=== PATIENT | female | born 1950 | race Caucasian/White ===

== ENCOUNTER → 2018-07-13 13:07 | Outpatient (CLI) | payer MEDICARE, BC, SELFPAY ==
[2018-07-13 14:43] LABS: Hematocrit 41.8 % (36-46); Hemoglobin 14.1 g/dL (12.0-16.0); Mean Corpuscular HGB Conc 33.8 % (30-36); Mean Corpuscular Hemoglobin 32.2 PG (26-34); Mean Corpuscular Volume 95.3 fL (80-100); Platelet Count 360 X10^3/uL (150-400); Red Blood Cell Count 4.39 X10^6/uL (4.0-5.2); Red Cell Distribution Width 13.4 % (11.6-14.8); White Blood Cell Count 9.3 X10^3/uL (4.5-11.0)
[2018-07-13 15:19] LABS: BUN Creatinine Ratio 18.8 (6-22); Blood Urea Nitrogen 15 mg/dL (7-17); Carbon Dioxide 27 mmol/L (22-32); Chloride 98 mmol/L (98-107); Estimated Glomerular Filt Rate > 60.0 mL/min (>60); Glucose 97 mg/dL (80-110); HEMOLYSIS < 15 (0-50); Potassium 4.4 mmol/L (3.4-5.1); Sodium 137 mmol/L (137-145)
== END ==
PROVIDERS: Visit Provider Orthopaedic Surgery Orthopaedic Surgery of the Spine
DX: Z01.818 Encounter for other preprocedural examination (principal)
CPT/HCPCS: 36415; 80048; 85027; 93005

== ENCOUNTER 2018-07-22 06:14 | Inpatient (IN) | payer MEDICARE, BC, SELFPAY ==
[2018-07-18 09:53] VITALS: BMI 23.8
[2018-07-22] VITALS (17 sets, daily range): BP systolic 96–135; BP diastolic 57–80; PULSE 66–91; RESP 12–18; TEMP 35.8–36.7; O2SAT 92–99; BMI 23.8
--- NOTE | 2018-07-22 | DI.RAD.S_ITS ---
PROCEDURE: XR CERVICAL SPINE 2V OR 3V INDICATIONS: REMOVAL OF BROKEN SCREWS, IMPLANT AT C7-T1 TECHNIQUE: 3 intraoperative fluoroscopic view(s) of the cervical spine were acquired. COMPARISON: None. FINDINGS: Intraoperative fluoroscopic images of cervical spine shows fractured anterior fixation screws in the lower cervical spine. IMPRESSION: Fluoroscopy guidance was provided intraoperatively for broken surgical screw removal. Dictated by: Nicola Herrera M.D. on 07/22/2018 at 11:19 Approved by: Nicola Herrera M.D. on 07/22/2018 at 11:21
--- NOTE | 2018-07-22 07:05 | SUR.PREOP ---
pt reports no numbness or tingling in any extremities at this time.
[2018-07-22] MEDS: LACTATED RINGERS 1,000 ML 42 ML IV ×2 (07:26→10:03)
[2018-07-22] MEDS: SCOPOLAMINE 1 PATCH TOP (07:29)
[2018-07-22] MEDS: APREPITANT 40 MG CAPSULE PO (07:29)
[2018-07-22] MEDS: CEFAZOLIN 2 GM/100 ML FROZ.PIGGY IV (07:48)
--- NOTE | 2018-07-22 08:23 | SUR.OPER ---
Supine, head on gel donut. Arms padded with gel pads, tucked at sides, towel roll under shoulders. Safety belt at thigh. Pillow under knees.Legs uncrossed.
--- NOTE | 2018-07-22 10:19 | PM.PREOP ---
Pre-operative Note Interval Note History & Physical reviewed/Exam performed by Physician: Yes Changes to H&P: No
--- NOTE | 2018-07-22 10:32 | P.OP_ITS ---
Operative Date/Time/Diagnoses Date of procedure: 07/22/18 Time of procedure: 08:20 Pre-op diagnosis: 1. Hardware loosening cervical spine with previous fusion 2. Pseudoarthrosis C6-7 3. Spinal stenosis C7-T1 4. Spondylosis with radiculopathy C7-T1 Post-op diagnosis: same Procedure & Clinicians Procedure: 1. C7-T1 anterior cervical discectomy and fusion 2. C7-T1 anterior interbody cage placement 3. C6-7 revision anterior cervical fusion with allograft 4. C7-T1 anterior instrumentation with plate and screw placement 5. C6-7 anterior instrumentation removal 6. Debridement of scar tissue including muscle, fascia and bone 7. Utilization of microsurgical technique and operating microscope Same procedure as scheduled: Yes Indications: Patient has been having chronic neck pain and worsening cervical radiculopathy. Patient had prior anterior cervical fusion with instrumentation with worsening pain and radiculopathy. Imaging shows loosened hardware with pseudoarthrosis at C6-7 and advanced adjacent level disease with spinal stenosis at C7-T1. Patient failed multiple conservative management with worsening pain weakness and numbness in her upper extremity. Patient has been having difficulty performing activity of daily living. After discussing risks benefits of treatment options, patient elected proceed with surgery. Surgeon: Arcadio Keita Tier And Detonator: Charisse Landry Click Yes if Unassisted: Yes Anesthesia Type: General Operative Notes Closure Type: primary Specimen(s): none sent Prosthetic devices, grafts, tissues, transplants, or devices: Gl[employer] plate and cage with screws Estimated Blood Loss (mL): 20 Blood products transfused: none Procedure in detail: Patient was seen in the preoperative area. Risks and benefits of the surgery was discussed with the patient. Informed consent was obtained from the patient and placed in the chart. Surgical site was marked. Patient was taken to the operative room. General anesthesia was administered. Prophylactic antibiotic was given to the patient less than 30 min before the incision was made. Patient was placed into a supine position on a radiolucent table. Patient's shoulders were taped down to allow proper C-arm imaging. Anterior cervical area was prepped and draped in a sterile fashion. Time-out was performed at this time. Using lateral C-arm imaging, the level between C6 and T1 was identified and marked on patient's neck. A oblique incision from midline towards medial border of sternocleidomastoid muscle was made. The platysma muscle was incised in line with skin incision. Metzenbaum scissor was used to develop the plane between the medial border of sternocleidomastoid d and the strap muscles medially. The carotid sheath and its contents were identified and protected behind the hand- held retractor during the entire case. The plane between the carotid sheath and strap muscles was developed with Metzenbaum scissors. Dissection was made down to the level of the anterior cervical fascia. Longus colli muscle was incised on the anterior aspect of vertebral bodies bilaterally from C6-T1. Spinal needle was placed into the C7-T1 disc space and confirmed with lateral C-arm imaging. Loosened screws at C6-7 level was identified and removed using pituitary without any difficulty. Anterior scar tissue from previous surgery was debrided to expose the hardware. Fascial tissue, muscle and bone was removed using currett and pituitary in order to expose the disc space at C7-T1 due to the overlaying hardware partially covering the disc space. After the debridement was completed the C7-T1 disc space was visible. Using microsurgical technique and operative microscope, anterior cervical diskectomy was performed at C7-T1 level. This was done by removing the disc material, removing the anterior and posterior osteophytes posterior longitudinal ligaments along with performing bilateral foraminotomies at the C7-T1 levels. Patient was found to have severe foraminal stenosis. Patient's stenosis was fully decompressed after decompression was completed. After the diskectomy was completed, an anterior interbody cage was obtained. The cage was packed with globus via cell bone grafting material. One cage each along with the bone jessica ting material was then packed into the interbody space at C7-T1 along with an anterior cervical plate. The cervical plate was stabilized to the C7-T1 vertebrae using screws. After confirming placement of the hardware with AP and lateral C-arm imaging, the screws were locked into the plate using the locking mechanism and torque limiting screwdriver. The C6-7 disc space was inspected using the microscope. There is visible motion indicating pseudoarthrosis at C6-7 level. The disc space was decorticated using a power drill and curette to prepare for fusion surface. Demineralized bone matrix allograft was placed into the C6-7 level after the decortication was completed in order to accomplish anterior cervical fusion at C6-7 level. After the hardware was placed and confirmed with AP and lateral C-arm imaging, the wound was irrigated with sterile normal saline. The platysma muscle and the subcutaneous tissue was closed with 2-0 Vicryl. The skin was closed with 4-0 Monocryl and Steri-Strips. Patient tolerated the procedure well. Patient was transferred recovery room in stable condition. There were no complications. Complications: none Condition: stable Disposition: PACU Plan for aftercare: Admit to inpatient hospital
[2018-07-22] MEDS: fentaNYL 100 MCG/2 ML INJ 50 MCG IV (10:38)
[2018-07-22] MEDS: HYDROMORPHONE 2 MG INJ 0.5 MG IV ×2 (11:09→11:18)
[2018-07-22] MEDS: hydrOXYzine 50 MG/ML INJ 25 MG IM (11:29)
--- NOTE | 2018-07-22 12:00 | SUR.PHASEI ---
Pt transferred to room 216 via bed with all belongings. Pt's last vital signs stable with pain controlled; see vitals flowsheet documentation for details. Report given to AGUSTIN Rogers prior to transfer. AGUSTIN Rogers at bedside with pt upon arrival to room 216.
[2018-07-22] MEDS: SODIUM CHLORIDE 0.9% 1,000 ML 100 ML IV ×2 (13:05→23:19)
--- NOTE | 2018-07-22 14:44 | CM.DANOTE ---
Discharge Planning/Care Management DCP: assessment: case received, EMR reviewed. Pt has just now arrived to the floor from PACU and is getting settled in. Pt is a 67 year old female who admitted this morning for a planned Cervical spinal surgery. Payer: Medicare and [facility] out of [facility]. Admission status: INPT: confirmed by COURTNEY Mcdaniel Surgeon: Dr. Keita. Pt's preop assessment shows she plans for home at d/c with family support. Her daughter Starr: [phone] is listed as her advocate. Expect PT will be seeing her before d/c. P: check in tomorrow to continue the d/c planning assessment process. CM Discharge Assessment Start: 07/22/18 14:43 Freq: Status: Active Protocol: Document 07/22/18 14:43 ITV (Rec: 07/22/18 14:44 ITV [id number]) Discharge Planning Assessment Advance Directives? No Advance Directives on File No History Provided By Medical Record Prior Living Arrangements Apartment/Condo Household Members none Review Status In Process Next Review Type Continued Stay Review Pre-Anesthesia Assessment Start: 07/18/18 09:53 Freq: Status: Complete Protocol: Document 07/18/18 09:53 CAB (Rec: 07/18/18 10:58 CAB [id number]) Pre-Anesthesia Assessment Patient Information Reviewed Via Phone Assessment Assessment Completed With Patient Diagnostic Results BMP/CMP CBC EKG Comment Labs/EKG @ 07/13/18 Seen Specialist in Last 12 Months Yes Specialist Seen Sweater Operator Orthopedist Primary Language Surinamese Edi Consultant Required No Height 167.64 cm Weight 67.132 kg Body Mass Index (BMI) 23.8 Hearing Ability Normal Visual Assist Contacts Glasses Dentition Type Teeth, Natural Present Barriers to Learning None Other Aids No Hx Anesthesia Reactions Yes: Severe post-op vomiting Hx Family Anesthesia Reaction No Hx Malignant Hyperthermia No Hx Blood Transfusions No Anesthesia Review Requested No Lens Molder No alcohol intake current alcohol intake frequency a few times a week Smoking Status Never smoker Substance Use Type does not use Pain Present Pain Reported Musculoskeletal Symptoms Limited Range of Motion Neck Pain Numbness Radiating Pain into Limb Tingling History of Falling (Recent or History of No ) Patient is completely paralyzed or No completely immobile Mental Status Oriented to own ability Is patient on oxygen? No Does patient have PARKS/SOB No Hx Sleep Apnea No Currently Taking a Beta Camelia No Can You Climb a Flight of Stairs Without Yes SOB Hx Chest Pain No Hx SOB No Hx Syncope or Dizziness Yes: Imbalance of ear crystals 2018, now resolved Anti-Coagulant Therapy No Has a Sr Vice President No Cardiac Testing No Hx Pacemaker/ICD No Pacemaker Rep Required? No Cardiac Clearance Received Not Applicable Diet Type At Home Regular dysphagia Yes: Due to cervical hardware moving forward Urinary Catheter Present No Hx Urinary Self Catheterization No Diabetes No Patient No Lactating No Hx Drug Resistant Organism No Presence of External or Internal Medical Yes: Cervical hardware Devices Have you traveled outside the [facility] in the last 30 days? Marital Status Lives With none Prior Living Arrangements Apartment/Condo Support System Child/Children Friend(s) Patient Discharge Plan Description Return Home Comment Pt advised 1-2 night length of stay per surgeon's office Feels Safe in Current Environment Yes Been Physically Hurt or Threatened By a No Person in Current Environment Do you have thoughts of harming yourself None or others? Are you currently considering suicide? No Do you have a plan to hurt yourself or No Plan others? Do You Have Any Spiritual Beliefs That No May Affect Your HC Choices? Do You Have Any Cultural Practices That No May Affect Your HC Choices? Spiritual Referral None Comment Orthodox Who Can We Speak to About Patient's Care Family, friends Identifying Code for Release of Patient Declines to issue Information Health Care Proxy/Next of Kin Starr (daughter) Health Care Proxy Emergency Contact Name Starr (daughter) Emergency Contact Advance Directives? No: Information mailed to patient Requested Patient Bring Advanced Yes Directives DOS Power of Behavioral Health Case Manager No PAC Instructions Durable medical equipment Medications to take/avoid Nasal antibiotic No ETOH/petroleum product on skin DOS NPO Post-op transportation Pre-surgical wash Sensory aids Sturdy shoes/comfortable clothes Do not bring valuables and remove jewelry
--- NOTE | 2018-07-22 14:47 | PC.NURSE ---
Ortho: Received from pacu 67 yr female s/p neck surgery. Drowsy but arouses easily. Cont pulse ox for now and sats have been 95% or greater on ra. not hungry and didn't eat lunch but is taking ice chips and water w/out choking or problems. Discussed use of cool/cold fluids and foods maybe more soothing to throat. Ice pack is on. Skin is sensative and can see where patches were from tele. Neck drssing is c/d/i, covered with tegaderm and no redness seen from tape in this area. Has been up to void x2. Pt reports she is comfortable at this time and only has an ache in her neck. Understands pain med regime and will call when she needs something. Dtr at bedside and helpful. Plans to spend the night to be with patient. Patient denies any concerns at this time. Cont w/poc.
--- NOTE | 2018-07-22 16:11 | PC.NURSE ---
Ortho: Pt reports a sore tongue and upper lt hand side of lip is swollen. Pt's upper lip is swollen and tongue has extensive bruising to the sides and underneath tongue. Swelling and bruising not seen earlier. Pt also reports she feels like there is blood in her mouth. no resp distress and denies any problems breathing or with airway. Cont to have no problems chewing or swallowing. Discussed taking ice chips with pt. Dr. Keita called and notified of pt's bruising and swelling of her lip and tongue, feeling blood in her mouth, no resp compromise seen. He asked to have anesthesiologist come and see pt, prefer the one who did the case with him, otherwise have health and nutrition specialist anesthesiologist see pt. Called pacu to relay message, Reyna RN notified of situation, Dr. Moran performed case with Dr. Keita or it could be health and nutrition specialist anesth Dr. Oquendo. She will make anesthe aware and one of them will come and see patient.
[2018-07-22] MEDS: OXYCODONE IR 5 MG TABLET 10 MG PO ×2 (16:24→21:17)
[2018-07-22] MEDS: CEFAZOLIN 1 GM/50 ML FROZ.PIGGY IV (16:24)
--- NOTE | 2018-07-22 18:25 | PT.IIE ---
Current Diagnoses Other spondylosis with radiculopathy, cervical region (07/22/18) Spinal stenosis, cervical region (07/22/18) Other mechanical complication of other internal orthopedic devices, implants and grafts, initial encounter (07/22/18) Surgery Performed Operation Date: 07/22/18 07:45 Actual Procedures p C6-7, C7-T1 ACDF w/Anterior instru, C6-7 Anterior hardware removal - Arcadio Keita MD Surgical History (Last Updated 07/18/18 @ 10:20 by Christina Will RN) History of 2 sections (Acute) Hx of appendectomy (Acute) S/P cervical spinal fusion (Acute ~10/2011) Status post Mohs surgery for basal cell carcinoma (Acute) Medical History (Last Updated 07/18/18 @ 10:20 by Christina Will RN) Arthritis (Acute) Asthma (Acute) Easy bruisability (Acute) Fragile skin (Acute) H/O: hysterectomy (Acute) HLD (hyperlipidemia) (Acute) HTN (hypertension) (Acute) Nerve pain due to spinal stenosis (Acute) Numbness and tingling (Acute) Seasonal allergies (Acute) Physical Therapy Inpatient Evaluation/Re-Eval M1 PT/OT-IP Prior Functional Status Start: 07/22/18 18:08 Freq: NEEDED Status: Active Protocol: Document 07/22/18 17:15 (Rec: 07/22/18 18:25 [id number]) Medical Review Prior Functional Status Medical History Reviewed Yes Diet/Fluid Consistency Regular Communication No deficits notd. Able to make needs knwon Mobility and Gait Pt is independent for mobility at home and community without AD. She is able to drive. Activities of Daily Living and IADL's Pt states she used her L UE for most ADLs and IADLs due to severe R arm pain but she is very independent for ADLs and IADLs Social History Household Members none Living Arrangements Apartment/Condo Number of Floors (Floors) Two Floors Number of Stairs To Enter/Railing? 13 QUIN from garage with 1 landing, R rail up 13 steps to 2nd floor with 1 landing, L rail up Home Environment Standard Height Toilet Tub/Shower Home Equipment Hand Held Shower Grab Bars In Shower Employment Status Retired Additional Social History Comment Pt lives alone in [facility]. Pt had her 1st cervical sx around 10 years ago but she had new onset of R arm pain recently which significantly limits her R arm mobility. She has been using her L UE primarily due to R arm pain. Imaging found out displaced hardware from previous surgery . She also states her dtr Sarah from [place] is going to stay with her for 4/5 days to assist and has friends around who are able to assist as well M2 PT-IP Current Condition Start: 07/22/18 18:08 Freq: NEEDED Status: Active Protocol: Document 07/22/18 17:15 (Rec: 07/22/18 18:25 [id number]) Physical Therapy Current Condition Current Condition Evaluation Date 07/22/18 Treatment Diagnosis C6-T1 ACDF, C6-C7 hardware removal, impaired R UE mobility Onset Date 07/22/18 Precautions Cervical Spine Precautions Soft Collar for Comfort Rigid Collar No Heavy Lifting Log Roll Weight Bearing Status Weight Bearing Status Weight Bear as Tolerated M3 PT-IP Subjective Start: 07/22/18 18:08 Freq: NEEDED Status: Active Protocol: Document 07/22/18 17:15 (Rec: 07/22/18 18:25 [id number]) Subjective Physical Therapy Visit Type Type Initial Evaluation Visit Start Time 17:15 Visit Stop Time 17:45 Total Visit Minutes 30 Notes Pt's dtr Sarah at bedside. Per RN, Pt's upper lip is swollen and tongue has extensive bruising to the sides and underneath tongue. Swelling and bruising not seen earlier. Pt also reports she feels like there is blood in her mouth. no resp distress and denies any problems breathing or with airway. Cont to have no problems chewing or swallowing Number of MUSIC GRAPHER Visits 0 Physical Therapy Visit Comments Patient Comments Im feeling a little bit weak. Patient Goals To return home with dtr. Therapy Pain Assessment Pain When Pain Assessed During Mobility Pain Present Pain Present Pain Reported Location right arm Intensity 3 Scale Used Numeric (1 - 10) Description Acute Pain Management Techniques Modification of Treatment Timing of Activity with Medications M4 PT-IP Mobility and Gait Start: 07/22/18 18:08 Freq: NEEDED Status: Active Protocol: Document 07/22/18 17:15 (Rec: 07/22/18 18:25 [id number]) PT-Bed Mobility Assessment Rolling Type of Rolling Log Rolling Roll to Left Level of Assist Standby Assistance Supine to Sit Supine to Sit Standby Assistance Sit to Supine Sit to Supine Standby Assistance Head of Bed Elevated Bedrails Scooting Scooting to Edge of Bed Standby Assistance Scooting Up and Down in Bed Standby Assistance PT-Transfer Assessment Sit to and From Stand Sit to and from Stand Standby Assistance Equipment Transfer Assistive Device Gait Belt Front Wheeled Walker Orthotic/Prosthetic Devices or Brace: Yes Transfers Transfer Destination Bed Transfer Technique Stand Step Pivot Transfer Ability Level of Assist Standby Assistance Comments Mobility Comments Pt was able to perform log to L and sat at EOB SBA. overall SBA with bed mobility and transfers. Appears very steady and have no c/o. Gait Assessment Gait Gait Assistance Required: Standby Assistance Distance (Feet) 270 Able to Maintain Weight Bearing Status Yes During Gait Assistive Devices Assistive Device Front Wheeled Walker Orthotic/Prosthetic Devices or Brace: Yes Gait Deviations General Gait Pattern Decreased Stride Length Decreased Feet Clearance Factors Limiting Gait Function Factors Limiting Gait Function Decreased Activity Tolerance Decreased Strength Limited Range of Motion Pain Comments Gait Comments Pt amb from EOB to entire hallway with FWW SBA. Pt appears slight unsteady with uneven steps for first 50 feets but then improved with proper gait speed. Pt states I am 75% of my baseline regarding mobility. Just slightly unsteady because of medications. Stair Climbing Assessment Comments Stair Climbing Comments did not attempt PT-Balance Assessment Sitting Balance and Reactions Static Sitting Balance Ability Normal Dynamic Sitting Balance Ability Normal Standing Balance and Reactions Static Standing Balance Ability Good Dynamic Standing Balance Ability Good Device Used FWW M5 PT-IP Objective Assessments Start: 07/22/18 18:08 Freq: NEEDED Status: Active Protocol: Document 07/22/18 17:15 (Rec: 07/22/18 18:25 [id number]) Orientation Orientation/Cognition Level of Alertness Alert Orientation Name Age Birthday Month Date Year Day of Week Place Situation Language Function Ability No Deficits Noted Safety Awareness Understands Safety Issues Memory Description No Deficits Noted Gross Range of Motion Upper Extremity ROM Assessment Within Functional Limits Lower Extremity ROM Assessment Within Functional Limits Strength Upper Extremity Strength Assessment Right Impaired Lower Extremity Strength Assessment Within Functional Limits Comments Strength Comments R UE strength 4-/5 L UE strength 4+/5 Coordination Assessment Gross Coordination Gross Coordination WNL Assessment Finger to Nose Test Normal Performance Pronation/Supination Test Normal Performance Sensation Assessment Sensation Gross Sensation WNL Light Touch Intact Proprioception (Position) Intact Muscle Tone Muscle Tone WNL Yes M6 PT-IP Treatment Start: 07/22/18 18:08 Freq: NEEDED Status: Active Protocol: Document 07/22/18 17:15 (Rec: 07/22/18 18:25 [id number]) Physical Therapy Treatment Exercises Exercises Ankle Pumps Quad Sets Education Education Provided Precautions Weight Bearing Status Post-Op Packet Safety M7 PT-IP Assessment and Plan Start: 07/22/18 18:08 Freq: NEEDED Status: Active Protocol: Document 07/22/18 17:15 (Rec: 07/22/18 18:25 [id number]) PT Summary Assessment and Plan Potential Rehabilitation Potential Excellent Status of Condition at Evaluation Stable Summary Impairments Pain ROM Strength Balance Bed Mobility Transfers Gait Activity Tolerance Assessment Summary Pt is low complexity who is POD #1 C6-T1 ACDF and C6-C7 hardware removal. Pt states her R UE mobility is better than baseline with WFL ROM and 4-/5 overall strength but still weaker than L UE. She is able recall 3/3 post op precautions and required SBA for log roll, bed mob, transfers and amb with FWW. She is still slightly unsteady than baseline and still have to clear 13 steps x 2 before d /c to home with dtr. But she is expected to reach rehab goals once she is medically stable. Goals Bed Mobility Goal Independent Transfer Goal Independent Front Wheeled Walker Gait Goal Independent Front Wheel Walker Gait Distance 500 Other Goals clear 13 steps x 2 with SBA (L and R railing) Days to Meet Goals 5 Frequency of Treatment Frequency Of Treatment Twice a Day Treatment Plan Physical Therapy Treatment Plan Bed Mobility Training Transfer Training Gait Training Therapeutic Exercise Balance Retraining Post Op Education Discharge Planning Hot or Cold Pack Other Recommendations and Next Treatment review precautions Focus bed mob ,transfer and gait training as kathy with LRAD stair climbing 13 steps x 2 (L & R railing) Recommendations To Nursing Amount of Assist Needed Standby Assistance Discharge Recommendations PT Discharge Recommendations Home with Assistance Equipment Needed for Home Before FWW/. SPC depends on progress. Discharge
--- NOTE | 2018-07-22 19:54 | PC.NURSE ---
Patient is a&o x3, however is groggy and sleeping since arrival to floor from surg. During bedside report this nurse noticed bruising to tip of tongue. Day shift nurse states that is new and was not present upon arrival from surgery. Call was placed to Dr. Keita, he redirected nursing concerns to consult with the anesthesiologist as this may be a result from intubation. Patient was also noted to have facial edema on the left side. Consult was placed for Anesthesiology to come see patient and eval facial edema and bruising. Dr. Oquendo rounded on patient around 194, evaluated patient and no action to be taken. Dr. Oquendo discussed monitoring edema with patient, family at bedside and this nurse. Also suggested that if worsening occurs to call, but for now to monitor and remain sitting in upright position as much as tolerated by patient. Patient and family are agreeable to plan of care. Call light is with in reach, bed in low pos. alarm active as patient remains to be slightly groggy and sleepy.
[2018-07-22] MEDS: SENNOSIDES 8.6 MG TABLET 17.2 MG PO (21:14)
[2018-07-22] MEDS: TRIAMTERENE/HCTZ 37.5/25 TABLET 1 CAP PO (21:14)
[2018-07-22] MEDS: DOCUSATE 100 MG CAPSULE PO (21:15)
[2018-07-22] MEDS: AMLODIPINE 5 MG TABLET PO (21:15)
[2018-07-23] MEDS: ZOLPIDEM 5 MG TABLET PO (00:41)
[2018-07-23] MEDS: OXYCODONE IR 5 MG TABLET 10 MG PO ×3 (00:41→10:01)
[2018-07-23] MEDS: CEFAZOLIN 1 GM/50 ML FROZ.PIGGY IV (00:41)
[2018-07-23 03:50] VITALS: BP 100/54; PULSE 82; RESP 18; TEMP 36.6; O2SAT 95
[2018-07-23 06:01] LABS: Hematocrit 33.9 % (36-46); Hemoglobin 11.7 g/dL (12.0-16.0)
--- NOTE | 2018-07-23 08:47 | P.DS_ITS ---
History of Present Illness Date Patient Seen: 07/23/18 Time Patient Seen: 08:44 Chief complaint: Cervical Fusion Anterior Narrative: The history and physical is contained in the chart in a previously completed note. Please refer to that note for this information. Discharge Providers Date of admission: 07/22/18 06:14 Discharge Date: 07/23/18 Consults: 07/22/18 12:17 Consult to Occupational Therapy Evaluate & Treat Comment: Physician Instructions: Evaluate and treat Consult to Physical Therapy Evaluate & Treat Comment: Physician Instructions: Evaluate and Treat Discharge provider: Sabas Cleary MD Summary Discharge Diagnosis: 1. Cervical spondylosis 2. Cervical stenosis 3. Failure of prior cervical fusion 4. Post hemorrhagic anemia Hospital Course: The patient was admitted to the hospital and taken directly to the operating room where she underwent a revision cervical fusion from C6-T1. She tolerated this procedure well and was comfortable postoperative day 1. At the time of this dictation and plan is for her to attempt to do stairs with physical therapy and if she is successful she may go home. Status at Discharge Cognitive/behavioral status at discharge: oriented Functional status at discharge: independent ambulation Overall status at discharge: patient is progressing back to baseline Time Spent with Patient Less than 30 minutes Exam Vital Signs (past 8 hours): - 07/23/18 03:50 Temperature 97.8 F Pulse Rate 82 Respiratory Rate 18 Blood Pressure 100/54 L Pulse Oximetry 95 Oxygen Delivery Method Room Air Oxygen Flow Rate 0 Narrative Exam Narrative: Cervical dressing is clean dry and intact. Light touch is intact in all 4 extremities. She can dorsiflex and plantar flex her toes and ankles and has good bilateral real estate listing consultant. Objective Labs Result Diagrams: 07/23/18 05:47 Labs: Laboratory Results - last 24 hr 07/23/18 05:47 Hgb 11.7 L Hct 33.9 L Discharge Plan Discharge Plan Patient Disposition: Home Discharge Med Rec/Prescriptions Prescriptions: New oxycodone 5 mg Tablet 10 mg PO Q3HR PRN (Reason: Pain, Severe (7-10)) Qty: 60 RF: 0 hydroxyzine pamoate 25 mg Capsule 25 mg PO Q4HR PRN (Reason: Nausea And Vomiting) Qty: 40 RF: 0 Continued amlodipine 5 mg Tablet 5 mg PO BEDTIME RF: 0 triamterene-hydrochlorothiazid 37.5-25 mg Capsule 1 cap PO BEDTIME RF: 0 loratadine [Allerclear] 10 mg Tablet 10 mg PO DAILY PRN (Reason: Seasonal allergies) RF: 0 zolpidem [Ambien] 10 mg Tablet 5 mg PO BEDTIME RF: 0 Discontinued acetaminophen-codeine [Tylenol-Codeine #3] 300-30 mg Tablet 2 tab PO DAILY PRN (Reason: Pain) RF: 0 Follow up/Referrals: Arcadio Keita MD [Physician] - 2 Weeks Provider Discharge Instructions Diet: Diet as Tolerated and Regular Activity: You may walk as tolerated. Lift no more than [address] until after you are seen in follow up. Cold/Heat Therapy: You may apply ice for 15 minutes of every hour as needed for pain control. Other treatments: Use the soft collar for comfort. Skin/Wound/Dressing Care Report to your healthcare provider any signs of infection, such as:: chills, fever, night sweats, increased pain, unusual drainage and unusual redness Dressing: Keep the dressing clean and dry. Visit Report/Discharge Packet Stand Alone Forms: Surgery Discharge Discharge Data Attending Provider: Arcadio Keita Admit Date/Time: 07/22/18 06:14 Quality VTE Deep Vein Thrombosis/Pulmonary Embolism Present on Admission: No
--- NOTE | 2018-07-23 09:20 | PT.IPTN ---
Current Diagnoses Other spondylosis with radiculopathy, cervical region (07/22/18) Spinal stenosis, cervical region (07/22/18) Other mechanical complication of other internal orthopedic devices, implants and grafts, initial encounter (07/22/18) Surgery Performed Operation Date: 07/22/18 07:45 Actual Procedures p C6-7, C7-T1 ACDF w/Anterior instru, C6-7 Anterior hardware removal - Acradio Keita MD Physical Therapy Treatment Note M2 PT-IP Current Condition Start: 07/22/18 18:08 Freq: NEEDED Status: Discharge Protocol: Document 07/22/18 17:15 HH (Rec: 07/22/18 18:25 [id number]) Physical Therapy Current Condition Current Condition Evaluation Date 07/22/18 Treatment Diagnosis C6-T1 ACDF, C6-C7 hardware removal, impaired R UE mobility Onset Date 07/22/18 Precautions Cervical Spine Precautions Soft Collar for Comfort Rigid Collar No Heavy Lifting Log Roll Weight Bearing Status Weight Bearing Status Weight Bear as Tolerated M3 PT-IP Subjective Start: 07/22/18 18:08 Freq: NEEDED Status: Discharge Protocol: Document 07/23/18 09:20 GGD (Rec: 07/23/18 12:57 GGD [id number]) Subjective Physical Therapy Visit Type Type Treatment Note Visit Start Time 08:55 Visit Stop Time 09:20 Total Visit Minutes 25 Number of LEAD SOFTWARE DEVELOPER Visits 1 Physical Therapy Visit Comments Patient Comments Pt states she feels ready to go home. Therapy Pain Assessment Pain When Pain Assessed At Rest Pain Present Pain Present Pain Reported Location right arm Intensity 2 Scale Used Numeric (1 - 10) M4 PT-IP Mobility and Gait Start: 07/22/18 18:08 Freq: NEEDED Status: Discharge Protocol: Document 07/23/18 09:20 GGD (Rec: 07/23/18 12:57 GGD [id number]) PT-Transfer Assessment Sit to and From Stand Sit to and from Stand Standby Assistance Equipment Transfer Assistive Device Gait Belt Orthotic/Prosthetic Devices or Brace: Yes Transfers Transfer Destination Chair Transfer Ability Level of Assist Standby Assistance Gait Assessment Gait Gait Assistance Required: Contact Guard Assist Distance (Feet) 300 Able to Maintain Weight Bearing Status Yes During Gait Assistive Devices Assistive Device None Gait Belt Orthotic/Prosthetic Devices or Brace: Yes Gait Deviations General Gait Pattern Decreased Stride Length Decreased Feet Clearance Factors Limiting Gait Function Factors Limiting Gait Function Decreased Activity Tolerance Decreased Strength Limited Range of Motion Pain Stair Climbing Assessment Evaluation Level of Assist On Stairs Standby Assistance Devices Stair Climbing Assistive Devices Right Railing Technique/Endurance Stair Climbing Direction Ascend and Descend Stair Climbing Technique Step to Step Number of Steps Climbed 3 Query Text: Stair Climbing Set # Repetitions (reps) 4 M5 PT-IP Objective Assessments Start: 07/22/18 18:08 Freq: NEEDED Status: Discharge Protocol: Document 07/22/18 17:15 (Rec: 07/22/18 18:25 [id number]) Orientation Orientation/Cognition Level of Alertness Alert Orientation Name Age Birthday Month Date Year Day of Week Place Situation Language Function Ability No Deficits Noted Safety Awareness Understands Safety Issues Memory Description No Deficits Noted Gross Range of Motion Upper Extremity ROM Assessment Within Functional Limits Lower Extremity ROM Assessment Within Functional Limits Strength Upper Extremity Strength Assessment Right Impaired Lower Extremity Strength Assessment Within Functional Limits Comments Strength Comments R UE strength 4-/5 L UE strength 4+/5 Coordination Assessment Gross Coordination Gross Coordination WNL Assessment Finger to Nose Test Normal Performance Pronation/Supination Test Normal Performance Sensation Assessment Sensation Gross Sensation WNL Light Touch Intact Proprioception (Position) Intact Muscle Tone Muscle Tone WNL Yes M6 PT-IP Treatment Start: 07/22/18 18:08 Freq: NEEDED Status: Discharge Protocol: Document 07/23/18 09:20 GGD (Rec: 07/23/18 12:57 GGD [id number]) Physical Therapy Treatment Exercises Exercises Ankle Pumps Education Education Provided Precautions Brace Education Donning Jean Patient M7 PT-IP Assessment and Plan Start: 07/22/18 18:08 Freq: NEEDED Status: Discharge Protocol: Document 07/23/18 09:20 GGD (Rec: 07/23/18 12:57 GGD [id number]) PT Summary Assessment and Plan Summary Assessment Summary Pt improving with mobility. She was stable with gait without assistive device and had no LOB. She was safe and stable with stair mobility. Pt safe for home D/C when medically stable. Frequency of Treatment Frequency Of Treatment Twice a Day Treatment Plan Physical Therapy Treatment Plan Bed Mobility Training Transfer Training Gait Training Therapeutic Exercise Balance Retraining Post Op Education Discharge Planning Hot or Cold Pack Recommendations To Nursing Amount of Assist Needed Standby Assistance Discharge Recommendations PT Discharge Recommendations Home with Assistance
[2018-07-23] MEDS: DOCUSATE 100 MG CAPSULE PO (10:01)
--- NOTE | 2018-07-23 10:45 | PC.NURSE ---
Day shift: Pt left unit at approx 1045 with MIKE Yan. Pt wanted to ambulate to car. Private car driven by Pt's daughter. Paperwork signed and all questions answered. Pt has MD walker and all personal belongings.
--- NOTE | 2018-07-23 15:02 | CM.DPC ---
DCP: continued: case discussed in Team Rounds. JEFF Malki noted that pt had been cleared by PT for home. By end of Team Rounds ortho d/c order was in place and pt had already left for home. She ambulated out to her car and was driven home by her daughter. Ortho clinic followup.
== END 2018-07-23 10:48 | disposition home or self-care (01) | DRG 472 ==
PROVIDERS: Admitting Provider Orthopaedic Surgery Orthopaedic Surgery of the Spine; Visit Provider Orthopaedic Surgery Orthopaedic Surgery of the Spine
PROC: 0RG40A0 Fusion of Cervicothoracic Vertebral Joint with Interbody Fusion Device, Anterior Approach, Anterior Column, Open Approach (ICD-10-PCS; principal; 2018-07-22 07:45)
DX: T84.498A Other mechanical complication of other internal orthopedic devices, implants and grafts, initial encounter (principal); M96.0 Pseudarthrosis after fusion or arthrodesis; M47.22 Other spondylosis with radiculopathy, cervical region; M48.02 Spinal stenosis, cervical region; M47.23 Other spondylosis with radiculopathy, cervicothoracic region
CPT/HCPCS: 36415; 72040; 76000; 85014; 85018; 97116; 97161; 97530; C1776; J0690; J1100; J1170; J2405; J2704; J3010; J3410; J8501

== ENCOUNTER → 2020-07-24 11:44 | Outpatient (CLI) | payer MEDICARE, BC, SELFPAY ==
[2018-07-22 12:33] VITALS: BMI 23.8
[2020-07-24 13:12] LABS: COVID19 -Nasal RAPID Negative (Negative)
== END ==
PROVIDERS: Referring Provider Physician Assistant; Visit Provider Physician Assistant
DX: Z20.822 Contact with and (suspected) exposure to COVID-19 (principal)
CPT/HCPCS: 87635; C9803

== ENCOUNTER 2020-07-26 06:04 | Inpatient (IN) | payer MEDICARE, BC, SELFPAY ==
[2018-07-22 12:33] VITALS: BMI 23.8
[2020-07-22 11:42] VITALS: BMI 22.4
[2020-07-26] VITALS (20 sets, daily range): BP systolic 102–134; BP diastolic 33–78; PULSE 80–99; RESP 10–22; TEMP 36.3–36.9; O2SAT 91–100; BMI 22.6
[2020-07-26] MEDS: LACTATED RINGERS 1,000 ML 42 ML IV ×2 (07:11→10:37)
--- NOTE | 2020-07-26 07:17 | SUR.PREOP ---
Chlorhexadine wipe to back completed.
--- NOTE | 2020-07-26 07:38 | PM.PREOP ---
Pre-operative Note COVID-19 COVID-19 status: Negative Result date/Date tested (Pos, Neg/Pending): 07/24/20 Interval Note History & Physical reviewed/Exam performed by Physician: Yes Changes to H&P: No
[2020-07-26] MEDS: CEFAZOLIN 1 GM VIAL 2 GM IV ×3 (07:48→23:50)
--- NOTE | 2020-07-26 08:26 | SUR.OPER ---
Prone on spine table, head in foam head support, padded chest and pelvic supports, gel pad at knees, lower legs supported by pillows; nipples, genitalia and toes free of pressure, arms secured on foam padded arm boards at <90 degrees abduction. Tape over blanket at thigh secured to table.
[2020-07-26] MEDS: BUPIVACAINE LIPOSOME 266 MG/20 ML VIAL INJ (08:34)
[2020-07-26] MEDS: BUPIVACAINE 0.5% W/ EPI (PF) 30 ML VIAL INJ (08:35)
--- NOTE | 2020-07-26 10:39 | PC.NURSE ---
Day shift: Pt not on AC unit at this time (1040).
--- NOTE | 2020-07-26 11:05 | P.OP_ITS ---
Operative Date/Time/Diagnoses Date of procedure: 07/26/20 Time of procedure: 08:05 Pre-op diagnosis: 1. Lumbar scoliosis 2. SPinal stenosis L1-2, L2-3 3. Lumbar spondylosis with radiculopathy Post-op diagnosis: same Procedure & Clinicians Procedure: 1. L2-3 posterolateral and posterior interbody fusion 2. L1-2, L2-3 decompression laminectomies 3. L2-3 interbody cage placement 4. L1-2 posterolateral fusion 5. L1-3 posterior segemental instrumentation 6. [place] of bone marrow from iliac crest 7. Utilization of microsurgical technique and operating microscope Same procedure as scheduled: Yes Indications: Patient has been having chronic back pain and worsening lumbar radiculopathy. Patient has history of idiopathic scoliosis with worsening back pain and radiculopathy and difficulty performing activities of daily living. Patient failed multiple conservative management with worsening pain weakness and numbness in her lower extremity. Patient has been having difficulty performing activity of daily living. After discussing risks benefits of treatment options, patient elected proceed with surgery. Surgeon: Arcadio Keita Air Antisubmarine Officer: Sabas Cleary Click Yes if Unassisted: No Anesthesia Type: General Operative Notes Closure Type: primary Specimen(s): none sent Prosthetic devices, grafts, tissues, transplants, or devices: Globus revolve screws, Rise cage Applied: catheter Estimated Blood Loss (mL): 100 Blood products transfused: none Procedure in detail: Patient was seen in the preoperative area. Risks and benefits of the surgery was discussed with the patient. Informed consent was obtained from the patient and placed in the chart. Surgical site was marked. Patient was taken to the operative room. General anesthesia was administered. Prophylactic antibiotic was given to the patient less than 30 min before the incision was made. Patient was placed into a prone position on the Aneesh table. Patient's back was then prepped and draped in the sterile fashion. Time- out was performed at this time. Using AP and lateral C-arm imaging the interval between L1-2, L2-3 level was identified and marked on patient's back. A 2 inch incision 2 in from midline was made on the left side first. The fascia was incised in line with skin incision. Globus MARS retractors was placed inside the incision and docked onto the L1 and L2 lamina. Using microsurgical technique and operating microscope, a L1 and L2 laminectomy and L1-2 L2-3 facetectomy was performed using a Kerrison rongeur. During the process of decompression more than 75% of bilateral L1-2 L2- 3 facets were removed in order to decompress the spinal canal and the lateral recess. The L1-2, L2-3 level was grossly unstable after the decompression was completed and requiring the fusion procedure. The disc space at L2-3 level was identified. And a total diskectomy was performed at L2-3 level. The endplates were decorticated using a rasp and shaver. The total diskectomy and decortication was performed at L2-3 level in order to to accomplish a L2-3 fusion. The local bone from the laminectomy and facetectomy was saved for local bone grafting. After the total diskectomy and decortication was completed, Trifecta bone graft material was combined with local bone that was harvested earlier. At this time, a separate skin is incision was made over the iliac crest. A Jamshidi needle was inserted into the iliac crest through a separate skin incision. 5 cc of bone marrow aspiration was obtained through the separate skin incision using a Jamshidi needle from the iliac crest. The bone marrow aspiration was combined with local bone and the Trifecta bone grafting material. The bone grafting material was placed into the L2-3 interbody space along with one cage. The cage were expanded to their maximum height using the torque limiting screwdriver. At this time a mirror image incision was made on the right side. The fascia was incised in line with the skin incision. Globus MARS retractor was inserted and docked onto the L1-2, L2-3 posterolateral gutter. Using the power drill, posterior-lateral decortication was performed at L1-2, L2-3 level until bleeding cortical bone was identified. The remaining bone grafting material was placed into the L1-2, L2-3 posterior lateral gutter in order to accomplish posterolateral fusion at the L1-2, L2-3 levels. Using the double C-arm technique, pedicle screws were placed into the L1, L2, L3 pedicles bilaterally. This was done by placing the Jamshidi needle into the pedicles, then placing the guidewires over the Jamshidi needle, and finally placing the cannulated screws over the guidewires bilaterally. After the pedicle screws were placed, 2 titanium rods was locked into the heads of the pedicle screws using locking caps and torque limiting screwdriver. Total 6 pedicles screws were placed. All 6 screws had excellent purchase after the placement was completed. All pedicle screws were tested using neuro monitoring system and all had above 20 milliamps of threshold. After all the hardware was placed, and confirmed with AP and lateral C-arm imaging, the wound was then irrigated with sterile normal saline and packed with Ray-Hector gauze for 3 min to accomplish hemostasis. After the gauze was removed the deep fascia was closed with #1 Vicryl suture. The subcutaneous layer was closed with 2-0 Vicryl. The skin was closed with skin brando. Patient tolerated the procedure well. There were no complications. Complications: none Post-operative Condition: stable Disposition: PACU Plan for aftercare: Admit to inpatient hospital
[2020-07-26] MEDS: MORPHINE 10 MG/ML INJ IV ×3 (11:21→11:56)
--- NOTE | 2020-07-26 11:22 | DI.RAD.S_ITS ---
PROCEDURE: XR LUMBAR SPINE 2-3V INDICATIONS: L2-3 TLIF, FUSION FROM L1-L3 TECHNIQUE: To views of the lumbar spine were acquired. COMPARISON: None. FINDINGS: Bones: L1, L2 and L3 bilateral transpedicular screws noted. L2-L3 intervertebral disc spacer. Soft tissues: Overlying bowel gas pattern is normal. No suspicious soft tissue calcifications. IMPRESSION: Expected intraoperative change for L1-L3 TLIF. Dictated by: Brenda Ramos MD, PhD on 07/26/2020 at 16:52 Approved by: Brenda Ramos MD, PhD on 07/26/2020 at 16:53
[2020-07-26] MEDS: hydrOXYzine 50 MG/ML INJ 25 MG IM (11:33)
[2020-07-26] MEDS: CODEINE/ACETAMINOPHEN 30/300 TABLET 2 TAB PO (11:36)
[2020-07-26] MEDS: LORazepam 2 MG/ML INJ 0.25 MG IV (12:25)
[2020-07-26] MEDS: fentaNYL 100 MCG/2 ML INJ IV ×2 (12:26→12:41)
--- NOTE | 2020-07-26 12:27 | SUR.PHASEI ---
Assumed care of pt from Jessica VELEZ. Pt complaining of 10/10 pain.
--- NOTE | 2020-07-26 13:01 | SUR.PHASEI ---
Report given to Tracey Gamble RN. P dozing off and on. Dressing dry and intact.
--- NOTE | 2020-07-26 13:13 | PC.NURSE ---
Day shift: Pt in room from PACU at approx 1310. She is sleeping/resting on her rt side. Awakes to voice. RA 95%. VS WNL. Dressing on back is CDI. Call light in reach and bed alarm is on. Good Ramirez output in PACU. CMS ok. Stated pain 10/10 then fell back asllep. WIll continue to monitor and continue w/ post-op plan of care.
[2020-07-26] MEDS: SODIUM CHLORIDE 0.9% 1,000 ML 100 ML IV ×2 (13:22→23:50)
--- NOTE | 2020-07-26 13:49 | PT-IP ANOTE ---
checked with nurse and stated that pt is very sleepy and when she wakes up a little, she c/o 10/10 pain. checked on pt and pt is very sleepy. will check back tomorrow.
--- NOTE | 2020-07-26 13:51 | OT.IPNOTE ---
Checked with pt regarding getting up for OT eval and pt states in too much pain. Therefore to do OT eval tomorrow.
[2020-07-26] MEDS: MORPHINE 2 MG/ML INJ IV ×4 (14:16→23:49)
[2020-07-26] MEDS: ONDANSETRON 4 MG/2 ML INJ IV (16:54)
--- NOTE | 2020-07-26 19:50 | PC.NURSE ---
Pt was repositioned 3 times this evening. This last time the RN with this BEE RAISER turned her to her right side, and she was educated on log rolls and how to turn herself.
[2020-07-26] MEDS: GABAPENTIN 300 MG CAPSULE 900 MG PO (20:36)
[2020-07-26] MEDS: SENNOSIDES 8.6 MG TABLET 17.2 MG PO (20:36)
[2020-07-26] MEDS: DOCUSATE 100 MG CAPSULE PO (20:36)
[2020-07-26] MEDS: TRIAMTERENE/HCTZ 37.5/25 CAPSULE 1 CAP PO (20:36)
[2020-07-26] MEDS: ATORVASTATIN 20 MG TABLET 40 MG PO (20:36)
[2020-07-26] MEDS: AMLODIPINE 5 MG TABLET PO (20:37)
[2020-07-27] MEDS: MORPHINE 2 MG/ML INJ IV ×5 (02:49→23:37)
[2020-07-27 03:21] VITALS: BP 115/69; PULSE 90; RESP 18; TEMP 36.8; O2SAT 96
[2020-07-27] MEDS: LEVOTHYROXINE 25 MCG TABLET PO (06:13)
[2020-07-27] MEDS: ACETAMINOPHEN 325 MG TABLET 650 MG PO ×2 (06:59→16:27)
[2020-07-27] MEDS: TRAMADOL 50 MG TABLET PO ×4 (08:59→22:47)
[2020-07-27] MEDS: DOCUSATE 100 MG CAPSULE PO ×2 (08:59→21:30)
[2020-07-27] MEDS: hydrOXYzine pamoate 25 MG CAPSULE PO ×2 (08:59→13:59)
[2020-07-27] MEDS: PANTOPRAZOLE DR 40 MG TABLET PO (08:59)
--- NOTE | 2020-07-27 09:18 | PM.PNPO.1 ---
Subjective Subjective Date Patient Seen: 07/27/20 Time Patient Seen: 09:18 Interval history: The patient reports she is having a fair amount of soreness in her back. She has not been mobilized yet. Exam Vital Signs (past 8 hours): - 07/27/20 03:21 Temperature 98.3 F Pulse Rate 90 Respiratory Rate 18 Blood Pressure 115/69 Pulse Oximetry 96 Oxygen Delivery Method Nasal Cannula Oxygen Flow Rate 0 Narrative Exam Narrative: The patient is seen lying on her back comfortably. I did not roll her to check her dressing. Light touch is intact in both lower extremities. Dorsiflexion plantar flexion of both feet is intact. PFS Medical History (Updated 07/18/18 @ 10:20 by Christina Will RN) Arthritis Asthma Easy bruisability Fragile skin HLD (hyperlipidemia) HTN (hypertension) Nerve pain due to spinal stenosis Numbness and tingling Seasonal allergies Surgical History (Updated 07/22/20 @ 11:55 by Christina Will RN) H/O: hysterectomy History of 2 sections Hx of appendectomy Hx of fusion of cervical spine (07/22/18) S/P cervical spinal fusion (~10/2011) Status post Mohs surgery for basal cell carcinoma Social History household members: none Smoking Status: Never smoker alcohol intake: current Assessment & Plan Post-op Postoperative Procedures: Procedures Operation Date: 07/26/20 07:45 Actual Procedures Side Surgeon p L2-3 TLIF, L1-2 with L1-3 with posterior instrumentation Arcadio Keita MD Postoperative day: 1 Postoperative status: doing well Postoperative status narrative: Patient is stable postoperative day 1 status post lumbar decompression and fusion by Dr. Keita. She is having some discomfort but generally appears to be well controlled as far as pain goes. Postoperative plan: routine post-op care and ambulate Postoperative plan narrative: She will be mobilized today and try to ambulate with physical therapy. It is likely that she will be discharged tomorrow or the following day. Time Spent With Patient Time with patient: less than 15 minutes Quality VTE Deep Vein Thrombosis/Pulmonary Embolism Present on Admission: No
[2020-07-27 09:42] VITALS: BP 116/58; PULSE 85; RESP 16; TEMP 36.3; O2SAT 97
--- NOTE | 2020-07-27 10:35 | PT.IIE ---
Current Diagnoses Other secondary scoliosis, lumbar region (07/26/20) Spinal stenosis, lumbar region without neurogenic claudication (07/26/20) Surgery Performed Operation Date: 07/26/20 07:45 Actual Procedures p L2-3 TLIF, L1-2 with L1-3 with posterior instrumentation - Arcadio Keita MD Surgical History (Last Updated 07/22/20 @ 11:55 by Christina Will, RN) H/O: hysterectomy History of 2 sections Hx of appendectomy Hx of fusion of cervical spine (07/22/18) S/P cervical spinal fusion (~10/2011) Status post Mohs surgery for basal cell carcinoma Medical History (Last Updated 07/18/18 @ 10:20 by Christina Will RN) Arthritis Asthma Easy bruisability Fragile skin HLD (hyperlipidemia) HTN (hypertension) Nerve pain due to spinal stenosis Numbness and tingling Seasonal allergies Physical Therapy Inpatient Evaluation/Re-Eval M1 PT/OT-IP Prior Functional Status Start: 07/27/20 12:10 Freq: NEEDED Status: Active Protocol: Document 07/27/20 10:35 AB (Rec: 07/27/20 12:25 AB [id number]) Medical Review Prior Functional Status Medical History Reviewed Yes Communication able to make needs known Mobility and Gait pt stated that she is independent with all mobilities and ambulation without AD Social History Household Members children,none Living Arrangements Apartment/Condo Number of Floors (Floors) Two Floors Number of Stairs To Enter/Railing? 4 steps from the fron to enter with B rails and then 13 steps with L rail to get to bedroom level; pt stated that she can stay on bedroom level if needed has 13 steps with R rail to enter from the garage to get to main living area and then 13 steps with L rail to bedroom level. Home Environment Standard Height Toilet,Tub/ Shower Home Equipment Hand Held Shower Additional Social History Comment pt's son lives with her and can assist her when not at work. son will be off work until wednesday and pt's niece will stay with pt from wednesday to wednesday to assist pt. pt stated that she has a safety frame around the toilet stated that she can get a FWW and a shower chair pt has an adjustable bed M2 PT-IP Current Condition Start: 07/27/20 12:10 Freq: NEEDED Status: Active Protocol: Document 07/27/20 10:35 AB (Rec: 07/27/20 12:25 AB [id number]) Physical Therapy Current Condition Current Condition Evaluation Date 07/27/20 Treatment Diagnosis s/p L1-2, L2-3 fusion; difficulty in walking Onset Date 07/26/20 Precautions Lumbar Precautions Log Roll,No Twisting,Limit Bending,Lifting Restriction of 10 lbs,Gait Belt above Incisional Area M3 PT-IP Subjective Start: 07/27/20 12:10 Freq: NEEDED Status: Active Protocol: Document 07/27/20 10:35 AB (Rec: 07/27/20 12:25 AB [email or web address]) Subjective Physical Therapy Visit Type Type Initial Evaluation Visit Start Time 10:35 Visit Stop Time 11:10 Total Visit Minutes 35 Number of CENTRAL OFFICE OPERATOR Visits 0 Physical Therapy Visit Comments Patient Comments pt is agreeable to do PT Therapy Pain Assessment Pain When Pain Assessed At Rest Pain Present Pain Present Pain Reported Location back Intensity 7 Scale Used Numeric (0 - 10) Pain Management Techniques Distraction,Modification of Treatment,Re-positioning, Timing of Activity with Medications M4 PT-IP Mobility and Gait Start: 07/27/20 12:10 Freq: NEEDED Status: Active Protocol: Document 07/27/20 10:35 AB (Rec: 07/27/20 12:25 AB [email or web address]) PT-Bed Mobility Assessment Rolling Type of Rolling Log Rolling Level of Assist Standby Assistance Supine to Sit Supine to Sit Standby Assistance PT-Transfer Assessment Sit to and From Stand Sit to and from Stand Minimal Assistance,Moderate Assistance,1 Person Assistance ,Use of Upper Extremities Equipment Transfer Assistive Device Bed Rail,Front Wheeled Walker Orthotic/Prosthetic Devices or Brace: No Transfers Transfer Destination Chair Transfer Technique ambulated using FWW Transfer Ability Level of Assist Minimal Assistance,Moderate Assistance,1 Person Assistance ,Use of Upper Extremities Comments Mobility Comments educated pt on back precautions and log roll bed mobilitly. completed supine to sit log roll SBA and cues for techniques. pt was able to sit on EOB SBA. completed sit to stand mod A and cues for techniques. repeated x 2 with cues. pt ambulated to the chair using FWW min to mod A and cues. sat on chair. completed sit to stand from chair x 2 sets with first attempt mod and 2nd min A. positioned pt on chair. call light and table placed within reach. left pt with OT in room. Gait Assessment Gait Gait Assistance Required: Minimum Assistance,Moderate Assistance Distance (Feet) 15 Able to Maintain Weight Bearing Status Yes During Gait Assistive Devices Assistive Device Gait Belt,Front Wheeled Walker Orthotic/Prosthetic Devices or Brace: No Gait Deviations General Gait Pattern Antalgic,Decreased Stride Length,Decreased Feet Clearance,Narrow Based Gait Factors Limiting Gait Function Factors Limiting Gait Function Decreased Activity Tolerance, Decreased Strength,Difficulty Following Directions,Limited Range of Motion,Pain,Poor Balance,Poor Safety Awareness Comments Gait Comments pls refer to mobility section for details PT-Balance Assessment Sitting Balance and Reactions Static Sitting Balance Ability Good Dynamic Sitting Balance Ability Good Standing Balance and Reactions Static Standing Balance Ability Fair Dynamic Standing Balance Ability Fair Device Used FWW M5 PT-IP Objective Assessments Start: 07/27/20 12:10 Freq: NEEDED Status: Active Protocol: Document 07/27/20 10:35 AB (Rec: 07/27/20 12:25 AB [email or web address]) Orientation Orientation/Cognition Level of Alertness Alert Orientation Name,Place,Situation Language Function Ability No Deficits Noted Safety Awareness Decreased Safety Awareness Gross Range of Motion Lower Extremity ROM Assessment Within Functional Limits Strength Comments Strength Comments RLE : 3+/5 LLE : 4-/5 Coordination Assessment Gross Coordination Gross Coordination WNL Sensation Assessment Sensation Gross Sensation WNL Muscle Tone Muscle Tone WNL Yes M6 PT-IP Treatment Start: 07/27/20 12:10 Freq: NEEDED Status: Active Protocol: Document 07/27/20 10:35 AB (Rec: 07/27/20 12:25 AB [email or web address]) Physical Therapy Treatment Education Education Provided Precautions,Weight Bearing Status,Post-Op Packet,Safety M7 PT-IP Assessment and Plan Start: 07/27/20 12:10 Freq: NEEDED Status: Active Protocol: Document 07/27/20 10:35 AB (Rec: 07/27/20 12:25 AB [email or web address]) PT Summary Assessment and Plan Potential Rehabilitation Potential Good Status of Condition at Evaluation Stable Summary Impairments Pain,ROM,Strength,Balance, Coordination,Sensation,Tone, Cognition,Bed Mobility, Transfers,Gait,Activity Tolerance Assessment Summary pt requiring min to mod A with mobility using FWW but has decrease activity tolerance due to c/o increase pain affecting mobility. pt plans to go home and family to assist her. will conduct caregiver training when appropriate. pt has stairs to enter and get around her house and stair climbing training will be completed prior to d/c. will continue to assess progress. Goals Bed Mobility Goal Standby Assistance Transfer Goal Standby Assistance,Front Wheeled Walker Gait Goal Standby Assistance,Front Wheel Walker Gait Distance 200 Other Goals up/down 13 steps L rail ascending SBA up/down 4 steps B rail SBA Days to Meet Goals 5 Frequency of Treatment Frequency Of Treatment Twice a Day Treatment Plan Physical Therapy Treatment Plan Bed Mobility Training,Transfer Training,Gait Training, Therapeutic Exercise,Balance Retraining,Post Op Education, Discharge Planning,Hot or Cold Pack,Neuromuscular Re-ed, Coordination Retraining,Manual Therapy Precautions Lumbar Precautions Log Roll,No Twisting,Limit Bending,Lifting Restriction of 10 lbs,Gait Belt above Incisional Area Recommendations To Nursing Amount of Assist Needed 1 Person Assist Discharge Recommendations PT Discharge Recommendations Home with Assistance Transportation Needs at Discharge Private Vehicle
--- NOTE | 2020-07-27 11:23 | OT.IP.EVAL ---
Current Diagnoses Other secondary scoliosis, lumbar region (07/26/20) Spinal stenosis, lumbar region without neurogenic claudication (07/26/20) Surgery Performed Operation Date: 07/26/20 07:45 Actual Procedures p L2-3 TLIF, L1-2 with L1-3 with posterior instrumentation - Arcadio Keita MD Past Medical History (Last Updated 07/18/18 @ 10:20 by Christina Will, RN) Arthritis Asthma Easy bruisability Fragile skin HLD (hyperlipidemia) HTN (hypertension) Nerve pain due to spinal stenosis Numbness and tingling Seasonal allergies Surgical History (Last Updated 07/22/20 @ 11:55 by Christina Will, RN) H/O: hysterectomy History of 2 sections Hx of appendectomy Hx of fusion of cervical spine (07/22/18) S/P cervical spinal fusion (~10/2011) Status post Mohs surgery for basal cell carcinoma Occupational Therapy Inpatient Evaluation/Re-Eval M1 PT/OT-IP Prior Functional Status Start: 07/27/20 12:10 Freq: NEEDED Status: Active Protocol: Document 07/27/20 13:09 CGR (Rec: 07/27/20 13:27 CGR [id number]) Medical Review Prior Functional Status Medical History Reviewed Yes Communication able to make needs known Mobility and Gait pt stated that she is independent with all mobilities and ambulation without AD Activities of Daily Living and IADL's Pt was IND in all ADLs Social History Household Members children,none Living Arrangements Apartment/Condo Number of Floors (Floors) Two Floors Number of Stairs To Enter/Railing? 4 steps from the fron to enter with B rails and then 13 steps with L rail to get to bedroom level; pt stated that she can stay on bedroom level if needed has 13 steps with R rail to enter from the garage to get to main living area and then 13 steps with L rail to bedroom level. Home Environment Standard Height Toilet,Tub/ Shower Home Equipment Hand Held Shower Employment Status Retired Additional Social History Comment pt's son lives with her and can assist her when not at work. son will be off work until wednesday and pt's niece will stay with pt from wednesday to wednesday to assist pt. pt stated that she has a safety frame around the toilet stated that she can get a FWW and a shower chair pt has an adjustable bed M1 PT/OT-IP Prior Functional Status Start: 07/27/20 13:09 Freq: NEEDED Status: Active Protocol: Document 07/27/20 13:09 CGR (Rec: 07/27/20 13:27 R [id number]) Medical Review Prior Functional Status Medical History Reviewed Yes Communication able to make needs known Mobility and Gait pt stated that she is independent with all mobilities and ambulation without AD Activities of Daily Living and IADL's Pt was IND in all ADLs Social History Household Members children,none Living Arrangements Apartment/Condo Number of Floors (Floors) Two Floors Number of Stairs To Enter/Railing? 4 steps from the fron to enter with B rails and then 13 steps with L rail to get to bedroom level; pt stated that she can stay on bedroom level if needed has 13 steps with R rail to enter from the garage to get to main living area and then 13 steps with L rail to bedroom level. Home Environment Standard Height Toilet,Tub/ Shower Home Equipment Hand Held Shower Employment Status Retired Additional Social History Comment pt's son lives with her and can assist her when not at work. son will be off work until wednesday and pt's niece will stay with pt from wednesday to wednesday to assist pt. pt stated that she has a safety frame around the toilet stated that she can get a FWW and a shower chair pt has an adjustable bed M2 OT-IP Current Condition Start: 07/27/20 13:09 Freq: Status: Active Protocol: Document 07/27/20 13:09 CGR (Rec: 07/27/20 13:27 R [id number]) Occupational Therapy Current Condition Current Condition Evaluation Date 07/27/20 Treatment Diagnosis L-3 TLIF Diagnosis Onset Date 07/26/20 Post Operative Precautions Lumbar Precautions Log Roll,No Twisting,Limit Bending,Lifting Restriction of 10 lbs,Gait Belt above Incisional Area M3 OT- IP Subjective and Pain Start: 07/27/20 13:09 Freq: Status: Active Protocol: Document 07/27/20 13:09 CGR (Rec: 07/27/20 13:27 R [id number]) OT- Subjective Occupational Therapy Visit Type Type Initial Evaluation Visit Start Time 10:53 Visit Stop Time 11:23 Total Visit Minutes 30 Notes Partial co-treat with P.T. OT Pain Assessment Pain When Pain Assessed At Rest Pain Present Pain Present Pain Reported Location back Intensity 8 Scale Used Numeric (0 - 10) Management Techniques Distraction,Modification of Treatment,Re-positioning, Timing of Activity with Medications M4 OT- IP ADL's Start: 07/27/20 13:09 Freq: Status: Active Protocol: Document 07/27/20 13:09 CGR (Rec: 07/27/20 13:27 R [id number]) OT [id number] Comments OT Self-Feeding Comments not meal time OT ADL-Grooming General Evaluation Grooming Ability Standby Assistance Areas Needing Assistance Face Washing Comments OT Grooming Comments seated in chiar OT ADL-Oral Care Comments Oral Care Comments Pt declined OT ADL-Dressing General Eval Lower Body Dressing Ability Moderate Assistance Areas Needing Assistance Socks Comments OT Dressing Comments pt was able to doff socks but needed assist to don socks d/t pain. OT ADL-Toileting Comments OT Toileting Comments not performed OT ADL-Bathing Comments OT Bathing Comments not performed M5 OT- IP IADL's Start: 07/27/20 13:09 Freq: Status: Active Protocol: Document 07/27/20 13:09 CGR (Rec: 07/27/20 13:27 CGR [id number]) OT-Instrumental Activities of Daily Living Deficits IADL Deficits Identified No Deficits Home Safety Awareness Awareness of Need for Assistance at Home Good Awareness Ability to Problem Solve Emergency Able to Problem Solve Situations Medication Management Medication Management No Deficits Identified Money Management Money Management No Deficits Identified Meal Preparation Meal Preparation No Deficits Identified Mold Filler Mold Filler No Deficits Identified M6 OT- IP Functional Cognition Start: 07/27/20 13:09 Freq: Status: Active Protocol: Document 07/27/20 13:09 CGR (Rec: 07/27/20 13:27 CGR [id number]) Cognitive Factors Limiting Selfcare Function Cognitive Ability Level of Alertness Alert Patient Orientation Name,Age,Birthday,Month,Date, Year,Day of Week,Place, Situation Attention Span Ability Capable of Focused Attention, Capable of Sustained Attention Ability to Follow Commands Able to Follow Multi-Step Commands Memory Description No Deficits Noted Safety Awareness No Deficits Noted OT- Vision and Hearing OT- Hearing Assessment OT- Hearing Assessment WFL OT- Vision Assessment Visual Acuity Glasses All The Time Visual Attentiveness WFL Occular Pursuits WFL Vision Assessment Comments Pt wears bifocals in the hospital but typically wears contacts. M7 OT- IP Mobility and Balance Start: 07/27/20 13:09 Freq: Status: Active Protocol: Document 07/27/20 13:09 CGR (Rec: 07/27/20 13:27 CGR [id number]) OT-Transfer Assessment Sit to and From Stand Sit to and from Stand Moderate Assistance Transfers Transfer Ability Minimal Assistance Technique Transfer Destination Bed,Chair Transfer Technique Stand Step Pivot Devices Transfer Assistive Devices Gait Belt,Front Wheeled Walker Comments Mobility Comments Pt was able to ambulate to chair. OT- Balance Assessment Sitting Balance and Reactions Static Sitting Balance Ability Normal Dynamic Sitting Balance Ability Good M8 OT- IP Objective Assessments Start: 07/27/20 13:09 Freq: Status: Active Protocol: Document 07/27/20 13:09 CGR (Rec: 07/27/20 13:27 CGR [id number]) OT Gross Range of Motion Upper Extremity Range of Motion Assessment Within Functional Limits OT Strength Upper Extremity Strength Assessment Within Functional Limits OT- Coordination Assessment Upper Extremity Finger to Nose Test Within Functional Limits Finger Tapping Test Within Functional Limits OT-Muscle Tone Assessment Muscle Tone WNL Yes OT Sensation Assessment Edema Edema Absent M9 OT- IP Assessment and Plan Start: 07/27/20 13:09 Freq: Status: Active Protocol: Document 07/27/20 13:09 CGR (Rec: 07/27/20 13:27 CGR [id number]) OT Summary Assessment and Plan Potential Rehabilitation Potential Excellent Analytic Complexity at Evaluation Moderate Summary OT Impairments Pain,Balance,Functional Mobility,Self-Feeding,Grooming ,Dressing,Toileting,Bathing, Toilet Transfers,Shower Transfers,Activity Tolerance Progress Towards Goals Slow Progress due to Pain Assessment Summary Pt presents as a moderate complexity evaluation s/p admit for L1-3 TLIF. Pt is experiencing significant pain with movement at this time and was limited in her abilities. Pt is likely to progress quickly with decreased pain. Pt has support set up for home but has multiple steps. Home vs SNF depending on progress. Goals Grooming Goal Independent Dressing Goal Independent Toileting Goal Independent Bathing Goal Independent Toilet Transfer Goal Independent Shower Transfer Goal Independent Days to Meet Goals 10 Frequency of Treatment Frequency Of Treatment Once a Day Treatment Plan OT Treatment Plan ADL Training,Functional Mobility,Patient/Family Education,Discharge Planning Other Treatment Recommendations and Next shower and LB dressing. Treatment Focus Discharge Recommendations OT Discharge Recommendations Home with Assistance,SNF Rehab Transportation Needs at Discharge Private Vehicle
[2020-07-27 12:13] VITALS: BP 104/55; PULSE 81; RESP 18; TEMP 36.6; O2SAT 98
--- NOTE | 2020-07-27 13:10 | CM.IDA ---
Initial DCP Assessment Note Pt is a 70 yo female, resident of [place] , now POD#1 from spinal surgery by Dr Keita PCP: Nash Naqvier: BRITTANIE/ANSLEY Reviewed chart, pt discussed in multidisciplinary rounds this morning. Initial PT eval has been completed and therapy team expects patient can DC home w/assist from family depending on progress. Patient has planned for home w/assist from her son and niece over the next week or so. Following closely, no needs expected from DC planning team although will remain available in case this changes before DC. JOHNSON Gordon
--- NOTE | 2020-07-27 14:00 | PT.IPTN ---
Current Diagnoses Other secondary scoliosis, lumbar region (07/26/20) Spinal stenosis, lumbar region without neurogenic claudication (07/26/20) Surgery Performed Operation Date: 07/26/20 07:45 Actual Procedures p L2-3 TLIF, L1-2 with L1-3 with posterior instrumentation - Arcadio Keita MD Physical Therapy Treatment Note M2 PT-IP Current Condition Start: 07/27/20 12:10 Freq: NEEDED Status: Active Protocol: Document 07/27/20 10:35 AB (Rec: 07/27/20 12:25 AB [id number]) Physical Therapy Current Condition Current Condition Evaluation Date 07/27/20 Treatment Diagnosis s/p L1-2, L2-3 fusion; difficulty in walking Onset Date 07/26/20 Precautions Lumbar Precautions Log Roll,No Twisting,Limit Bending,Lifting Restriction of 10 lbs,Gait Belt above Incisional Area M3 PT-IP Subjective Start: 07/27/20 12:10 Freq: NEEDED Status: Active Protocol: Document 07/27/20 14:00 AB (Rec: 07/27/20 16:34 AB [id number]) Subjective Physical Therapy Visit Type Type Treatment Note Visit Start Time 14:00 Visit Stop Time 14:15 Total Visit Minutes 15 Number of SALES AND SERVICE ENGINEER Visits 0 Physical Therapy Visit Comments Patient Comments pt just walked with nursing and wanting to go back to bed with c/o increase back pain. agreed to walk with PT prior to going back to bed. Therapy Pain Assessment Pain When Pain Assessed At Rest Pain Present Pain Present Pain Reported Location back Intensity 8 Scale Used Numeric (0 - 10) Pain Behaviors Guarding Pain Management Techniques Modification of Treatment,Re- positioning,Timing of Activity with Medications M4 PT-IP Mobility and Gait Start: 07/27/20 12:10 Freq: NEEDED Status: Active Protocol: Document 07/27/20 14:00 AB (Rec: 07/27/20 16:34 AB [id number]) PT-Bed Mobility Assessment Rolling Type of Rolling Log Rolling Level of Assist Standby Assistance Sit to Supine Sit to Supine Standby Assistance PT-Transfer Assessment Sit to and From Stand Sit to and from Stand Moderate Assistance,1 Person Assistance,Use of Upper Extremities Equipment Transfer Assistive Device Gait Belt,Front Wheeled Walker Orthotic/Prosthetic Devices or Brace: No Comments Mobility Comments pt sitting on EOB and was about to go back to bed but agreed to do PT. completed sit to stand mod A and cues. pt continues to have difficulty with transitioning UE to FWW during sit to stand and needs mod A for stability. ambulated in room using FWW ~ 40 ft CGA. requested to go back to bed and completed log roll sit to supine SBA. positioned pt in bed. call light and table within reach. set up caregiver training. pt stated that she will call her son to come in tomorrow. agreed at 9 am tomorrow for caregiver training. Gait Assessment Gait Gait Assistance Required: Contact Guard Assist Distance (Feet) 40 Able to Maintain Weight Bearing Status Yes During Gait Assistive Devices Assistive Device Gait Belt,Front Wheeled Walker Orthotic/Prosthetic Devices or Brace: No Gait Deviations General Gait Pattern Decreased Stride Length, Decreased Feet Clearance,Step- to Gait Factors Limiting Gait Function Factors Limiting Gait Function Decreased Activity Tolerance, Decreased Strength,Limited Range of Motion,Pain,Poor Balance,Poor Safety Awareness M5 PT-IP Objective Assessments Start: 07/27/20 12:10 Freq: NEEDED Status: Active Protocol: Document 07/27/20 10:35 AB (Rec: 07/27/20 12:25 AB [id number]) Orientation Orientation/Cognition Level of Alertness Alert Orientation Name,Place,Situation Language Function Ability No Deficits Noted Safety Awareness Decreased Safety Awareness Gross Range of Motion Lower Extremity ROM Assessment Within Functional Limits Strength Comments Strength Comments RLE : 3+/5 LLE : 4-/5 Coordination Assessment Gross Coordination Gross Coordination WNL Sensation Assessment Sensation Gross Sensation WNL Muscle Tone Muscle Tone WNL Yes M6 PT-IP Treatment Start: 07/27/20 12:10 Freq: NEEDED Status: Active Protocol: Document 07/27/20 14:00 AB (Rec: 07/27/20 16:34 AB [id number]) Physical Therapy Treatment Education Education Provided Safety M7 PT-IP Assessment and Plan Start: 07/27/20 12:10 Freq: NEEDED Status: Active Protocol: Document 07/27/20 14:00 AB (Rec: 07/27/20 16:34 AB [id number]) PT Summary Assessment and Plan Potential Rehabilitation Potential Good Summary Impairments Pain,ROM,Strength,Balance, Coordination,Sensation,Tone, Cognition,Bed Mobility, Transfers,Gait,Activity Tolerance Progress Towards Goals Slow Progress due to Pain,Slow Progress due to Activity Tolerance Assessment Summary pt requiring mod A for sit to stand but able to ambulate with CGA using FWW. caregiver training set up for tomorrow at 9 am. stair climbing training also has to be conducted prior to d/c. will continue to assess progress for safe d/c plan. Goals Bed Mobility Goal Independent Transfer Goal Independent Gait Goal Standby Assistance,Front Wheel Walker Gait Distance 200 Other Goals up/down 13 steps L rail ascending SBA up/down 4 steps B rail SBA Days to Meet Goals 5 Frequency of Treatment Frequency Of Treatment Twice a Day Treatment Plan Physical Therapy Treatment Plan Bed Mobility Training,Transfer Training,Gait Training, Therapeutic Exercise,Balance Retraining,Post Op Education, Discharge Planning,Hot or Cold Pack,Neuromuscular Re-ed, Coordination Retraining,Manual Therapy Other Recommendations and Next Treatment caregiver training 07/28 @ 9 am Focus Precautions Lumbar Precautions Log Roll,No Twisting,Limit Bending,Lifting Restriction of 10 lbs,Gait Belt above Incisional Area Recommendations To Nursing Amount of Assist Needed 1 Person Assist Discharge Recommendations PT Discharge Recommendations Home with Assistance,Home Health Transportation Needs at Discharge Private Vehicle
[2020-07-27 15:40] VITALS: BP 118/55; PULSE 81; RESP 19; TEMP 36.9; O2SAT 97
[2020-07-27 21:02] VITALS: BP 106/48; PULSE 84; RESP 19; TEMP 36.9; O2SAT 95
[2020-07-27] MEDS: GABAPENTIN 300 MG CAPSULE 900 MG PO (21:30)
[2020-07-27] MEDS: ATORVASTATIN 20 MG TABLET 40 MG PO (21:30)
[2020-07-27] MEDS: SENNOSIDES 8.6 MG TABLET 17.2 MG PO (21:30)
[2020-07-27 23:40] VITALS: BP 126/67; PULSE 89; RESP 16; TEMP 36.8; O2SAT 97
[2020-07-28] MEDS: hydrOXYzine pamoate 25 MG CAPSULE PO ×2 (01:43→17:15)
[2020-07-28] MEDS: MORPHINE 2 MG/ML INJ IV ×2 (02:55→05:42)
[2020-07-28] MEDS: SODIUM CHLORIDE 0.9% FLUSH 10 ML IV ×4 (02:55→21:49)
[2020-07-28 03:21] VITALS: BP 123/61; PULSE 85; RESP 16; TEMP 36.9; O2SAT 100
[2020-07-28] MEDS: LEVOTHYROXINE 25 MCG TABLET PO (05:43)
--- NOTE | 2020-07-28 05:52 | PC.NURSE ---
Declined Tramadol this morning, states it does not help my pain . Requested Morphine 2 mg. IVP admin. Encouraged to let her doctor know that Tramadol is not effective pain control. Will report to day RN. & monitor,
--- NOTE | 2020-07-28 08:12 | P.PN_ITS ---
Subjective Subjective Date Patient Seen: 07/28/20 Time Patient Seen: 08:12 Interval history: The patient reports significant pain when she tries to mobilize. She has minimal relief from the Tramadol. She also reports she lives in a two-story home and cannot live on 1 story alone. She has 1 helper at home. She requires moderate assist to get from lying to standing here in the hospital yesterday and has not yet tried stairs. Exam Vital Signs (past 8 hours): - 07/28/20 03:21 Temperature 98.4 F Pulse Rate 85 Respiratory Rate 16 Blood Pressure 123/61 Pulse Oximetry 100 Oxygen Delivery Method Room Air Oxygen Flow Rate 0 Narrative Exam Narrative: Spinal wound is dressed with no drainage on the bandage. Light touch and motion are intact in both lower extremities. [facility] Medical History (Updated 07/18/18 @ 10:20 by Christina Will RN) Arthritis Asthma Easy bruisability Fragile skin HLD (hyperlipidemia) HTN (hypertension) Nerve pain due to spinal stenosis Numbness and tingling Seasonal allergies Surgical History (Updated 07/22/20 @ 11:55 by Christina Will RN) H/O: hysterectomy History of 2 sections Hx of appendectomy Hx of fusion of cervical spine (07/22/18) S/P cervical spinal fusion (~10/2011) Status post Mohs surgery for basal cell carcinoma Social History household members: children and none Smoking Status: Never smoker alcohol intake: current Assessment & Plan Post-op Postoperative Procedures: Procedures Operation Date: 07/26/20 07:45 Actual Procedures Side Surgeon p L2-3 TLIF, L1-2 with L1-3 with posterior instrumentation Arcadio Keita MD Postoperative day: 2 Postoperative status: doing well and marginal pain control Postoperative status narrative: The patient has marginal pain control. She has a severe vomiting reaction to most narcotics. She wants to have Tylenol with codeine available for her because she has previously tolerated this. She also requests a trial of Dilaudid for pain relief. Postoperative plan: routine post-op care and ambulate Postoperative plan narrative: We will continue physical therapy. She has caregiver training and stair training today. We will put her on the Tylenol with codeine and Dilaudid as options for pain relief. We will reassess her tomorrow to see if she is going to be able to go home. It is possible that she may require shelter facility placement if she does not make more progress over the next 24 hours. Time Spent With Patient Time with patient: less than 15 minutes Quality VTE Deep Vein Thrombosis/Pulmonary Embolism Present on Admission: No
[2020-07-28 08:54] VITALS: BP 114/61; PULSE 87; RESP 14; TEMP 36.6; O2SAT 100
--- NOTE | 2020-07-28 09:19 | CM.DPC ---
DCP HH Planning: Per PT, recommending safe d/c home with son assist and HH and will complete CG training with son bedside this morning around 0900. SW met bedside with pt who is up with walker in the room but states her hip pain is significant and was just given pain medication to work with PT and is hopeful pain is reduced. SW discussed HH recommendations and services and frequency and pt states she is agreeable to HH as she can't imagine getting in and out of a car at this point. SW provided HH Choice list and no HH preference and therefore SW made [facility] referral based on Vendor Calendar. SW called [facility] weekend on-call and provided HH referral and information and e-faxed referral to [facility] to review. Plan: SW to follow after CG training today and faxing F2F and HH orders to [facility] when available. JOHNSON Garcia
[2020-07-28] MEDS: CODEINE/ACETAMINOPHEN 30/300 TABLET 2 TAB PO (09:43)
[2020-07-28] MEDS: DOCUSATE 100 MG CAPSULE PO ×2 (09:44→21:46)
[2020-07-28] MEDS: PANTOPRAZOLE DR 40 MG TABLET PO (09:44)
[2020-07-28] MEDS: HYDROMORPHONE 2 MG TABLET PO (10:20)
--- NOTE | 2020-07-28 11:08 | PT.IPTN ---
Current Diagnoses Other secondary scoliosis, lumbar region (07/26/20) Spinal stenosis, lumbar region without neurogenic claudication (07/26/20) Surgery Performed Operation Date: 07/26/20 07:45 Actual Procedures p L2-3 TLIF, L1-2 with L1-3 with posterior instrumentation - Arcadio Keita MD Physical Therapy Treatment Note M2 PT-IP Current Condition Start: 07/27/20 12:10 Freq: NEEDED Status: Active Protocol: Document 07/27/20 10:35 AB (Rec: 07/27/20 12:[address] [email or web address]) Physical Therapy Current Condition Current Condition Evaluation Date 07/27/20 Treatment Diagnosis s/p L1-2, L2-3 fusion; difficulty in walking Onset Date 07/26/20 Precautions Lumbar Precautions Log Roll,No Twisting,Limit Bending,Lifting Restriction of 10 lbs,Gait Belt above Incisional Area M3 PT-IP Subjective Start: 07/27/20 12:10 Freq: NEEDED Status: Active Protocol: Document 07/28/20 11:08 AW (Rec: 07/28/20 12:04 AW [id number]) Subjective Physical Therapy Visit Type Type Treatment Note Visit Start Time 10:45 Visit Stop Time 11:08 Total Visit Minutes 23 Notes Pt's son, Nash, was present for caregiver training. Coordinated timing of tx with RN for pain industrial paramedic. Number of SOCIOLOGY RESEARCH ASSISTANT Visits 0 Physical Therapy Visit Comments Patient Comments Pt willing to work with PT. Therapy Pain Assessment Pain When Pain Assessed At Rest Pain Present Pain Present Pain Reported Location back Intensity 7 Scale Used Numeric (0 - 10) Pain Behaviors Guarding Pain Management Techniques Modification of Treatment,Re- positioning,Timing of Activity with Medications M4 PT-IP Mobility and Gait Start: 07/27/20 12:10 Freq: NEEDED Status: Active Protocol: Document 07/28/20 11:08 AW (Rec: 07/28/20 12:04 AW [id number]) PT-Bed Mobility Assessment Rolling Type of Rolling Log Rolling Level of Assist Standby Assistance Supine to Sit Supine to Sit Standby Assistance Sit to Supine Sit to Supine Standby Assistance PT-Transfer Assessment Sit to and From Stand Sit to and from Stand Minimal Assistance,1 Person Assistance,Use of Upper Extremities Equipment Transfer Assistive Device Gait Belt,Front Wheeled Walker Orthotic/Prosthetic Devices or Brace: No Transfers Transfer Destination Chair Transfer Technique ambulated using FWW Transfer Ability Level of Assist Contact Guard Assistance,1 Person Assistance,Use of Upper Extremities Comments Mobility Comments Pt was lying in bed as PT arrived. She completed log roll to her left side and SL to sit SBA. PT instructed pt's son to don the gait belt. Pt stood from the bed min A x 1 and used the FWW to ambulate 120 feet in the halls SBA to CGA. Her son was able to provide appropriate assist and cues. On return to the room, pt transferred back to supine SBA, stating she finds the chair uncomfortable. Left pt with tray table and call light in reach, bed alarm on for safety. Gait Assessment Gait Gait Assistance Required: Standby Assistance,Contact Guard Assist Distance (Feet) 120 Able to Maintain Weight Bearing Status Yes During Gait Assistive Devices Assistive Device Gait Belt,Front Wheeled Walker Orthotic/Prosthetic Devices or Brace: No Gait Deviations General Gait Pattern Antalgic,Decreased Stride Length,Decreased Feet Clearance,Narrow Based Gait, Step-to Gait Factors Limiting Gait Function Factors Limiting Gait Function Decreased Activity Tolerance, Decreased Strength,Limited Range of Motion,Pain,Poor Balance,Poor Safety Awareness Comments Gait Comments Pt was markedly fatigued after 120 feet with FWW. Gait was notable for RLE crossing midline which became more pronounced with increased distance, requiring CGA. PT-Balance Assessment Sitting Balance and Reactions Static Sitting Balance Ability Good Dynamic Sitting Balance Ability Good Standing Balance and Reactions Static Standing Balance Ability Fair Dynamic Standing Balance Ability Fair Device Used FWW M5 PT-IP Objective Assessments Start: 07/27/20 12:10 Freq: NEEDED Status: Active Protocol: Document 07/27/20 10:35 AB (Rec: 07/27/20 12:25 AB [id number]) Orientation Orientation/Cognition Level of Alertness Alert Orientation Name,Place,Situation Language Function Ability No Deficits Noted Safety Awareness Decreased Safety Awareness Gross Range of Motion Lower Extremity ROM Assessment Within Functional Limits Strength Comments Strength Comments RLE : 3+/5 LLE : 4-/5 Coordination Assessment Gross Coordination Gross Coordination WNL Sensation Assessment Sensation Gross Sensation WNL Muscle Tone Muscle Tone WNL Yes M6 PT-IP Treatment Start: 07/27/20 12:10 Freq: NEEDED Status: Active Protocol: Document 07/28/20 11:08 AW (Rec: 07/28/20 12:04 AW [id number]) Physical Therapy Treatment Education Education Provided Precautions,Safety Other Treatments Other Treatment Performed Educated pt's son on back precautions, gait belt, level of assist currently required for pt's safe mobility. M7 PT-IP Assessment and Plan Start: 07/27/20 12:10 Freq: NEEDED Status: Active Protocol: Document 07/28/20 11:08 AW (Rec: 07/28/20 12:04 AW [id number]) PT Summary Assessment and Plan Potential Rehabilitation Potential Good Summary Impairments Pain,ROM,Strength,Balance, Coordination,Sensation,Tone, Cognition,Bed Mobility, Transfers,Gait,Activity Tolerance Progress Towards Goals Slow Progress due to Pain,Slow Progress due to Activity Tolerance Assessment Summary Pt improved sit to stand and gait distance this AM. Her son participated in training to be able to assist her at home. He will be available 28/09 until Wednesday at which time pt 's cousin will arrive to provide 28/09 care until next . Anticipate pt will be safe to discharge home with assist and home health therapy once medically stable. She must complete stair training prior to discharge. Goals Bed Mobility Goal Independent Transfer Goal Independent Gait Goal Standby Assistance,Front Wheel Walker Gait Distance 200 Other Goals up/down 13 steps L rail ascending SBA up/down 4 steps B rail SBA Days to Meet Goals 5 Frequency of Treatment Frequency Of Treatment Twice a Day Treatment Plan Physical Therapy Treatment Plan Bed Mobility Training,Transfer Training,Gait Training, Therapeutic Exercise,Balance Retraining,Post Op Education, Discharge Planning,Hot or Cold Pack,Neuromuscular Re-ed, Coordination Retraining,Manual Therapy Other Recommendations and Next Treatment gait training; stairs Focus Precautions Lumbar Precautions Log Roll,No Twisting,Limit Bending,Lifting Restriction of 10 lbs,Gait Belt above Incisional Area Recommendations To Nursing Amount of Assist Needed 1 Person Assist Discharge Recommendations PT Discharge Recommendations Home with Assistance,Home Health Transportation Needs at Discharge Private Vehicle
[2020-07-28] MEDS: HYDROMORPHONE 4 MG TABLET PO ×3 (14:32→21:47)
--- NOTE | 2020-07-28 15:24 | PT.IPTN ---
Current Diagnoses Other secondary scoliosis, lumbar region (07/26/20) Spinal stenosis, lumbar region without neurogenic claudication (07/26/20) Surgery Performed Operation Date: 07/26/20 07:45 Actual Procedures p L2-3 TLIF, L1-2 with L1-3 with posterior instrumentation - Arcadio Keita MD Physical Therapy Treatment Note M2 PT-IP Current Condition Start: 07/27/20 12:10 Freq: NEEDED Status: Active Protocol: Document 07/27/20 10:35 AB (Rec: 07/27/20 12:[address] [email or web address]) Physical Therapy Current Condition Current Condition Evaluation Date 07/27/20 Treatment Diagnosis s/p L1-2, L2-3 fusion; difficulty in walking Onset Date 07/26/20 Precautions Lumbar Precautions Log Roll,No Twisting,Limit Bending,Lifting Restriction of 10 lbs,Gait Belt above Incisional Area M3 PT-IP Subjective Start: 07/27/20 12:10 Freq: NEEDED Status: Active Protocol: Document 07/28/20 15:24 AW (Rec: 07/28/20 17:28 AW [id number]) Subjective Physical Therapy Visit Type Type Treatment Note Visit Start Time 14:59 Visit Stop Time 15:24 Total Visit Minutes 25 Number of RECEIPT AND REPORT CLERK Visits 0 Physical Therapy Visit Comments Patient Comments Pt willing to work with PT. Therapy Pain Assessment Pain When Pain Assessed At Rest Pain Present Pain Present Pain Reported Location back Intensity 5 Scale Used Numeric (0 - 10) Pain Management Techniques Re-positioning,Timing of Activity with Medications M4 PT-IP Mobility and Gait Start: 07/27/20 12:10 Freq: NEEDED Status: Active Protocol: Document 07/28/20 15:24 AW (Rec: 07/28/20 17:28 AW [id number]) PT-Bed Mobility Assessment Rolling Type of Rolling Log Rolling Level of Assist Standby Assistance Supine to Sit Supine to Sit Standby Assistance Sit to Supine Sit to Supine Standby Assistance PT-Transfer Assessment Sit to and From Stand Sit to and from Stand Contact Guard Assistance,1 Person Assistance,Use of Upper Extremities Equipment Transfer Assistive Device Gait Belt,Front Wheeled Walker Orthotic/Prosthetic Devices or Brace: No Transfers Transfer Destination Bed,Bedside Commode Transfer Technique ambulated using FWW Transfer Ability Level of Assist Contact Guard Assistance,1 Person Assistance,Use of Upper Extremities Comments Mobility Comments Pt was lying in bed as PT arrived. She reported improved pain control and was willing to get up with therapy. She log rolled to her right and sat EOB SBA. With CGA she stood and used the FWW to walk to the bathroom where she used the [facility] SBA except for min assist to pull up her pants to maintain precautions. She then transferred to a w/c CGA and was pushed to the stairs. She stood from the w/c SBA and completed stair assessment. She then ambulated 90 feet back to the room with FWW SBA and transferred back to the bed SBA. Gait Assessment Gait Gait Assistance Required: Standby Assistance Distance (Feet) 90 Able to Maintain Weight Bearing Status Yes During Gait Assistive Devices Assistive Device Gait Belt,Front Wheeled Walker Orthotic/Prosthetic Devices or Brace: No Gait Deviations General Gait Pattern Antalgic,Decreased Stride Length,Decreased Feet Clearance,Narrow Based Gait Factors Limiting Gait Function Factors Limiting Gait Function Decreased Activity Tolerance, Decreased Strength,Limited Range of Motion,Pain,Poor Balance,Poor Safety Awareness Comments Gait Comments Gait pattern somewhat improved this PM and requiring only SBA with FWW. Stair Climbing Assessment Evaluation Level of Assist On Stairs Standby Assistance Devices Stair Climbing Assistive Devices Left Railing Technique/Endurance Stair Climbing Direction Ascend and Descend Stair Climbing Technique Step Over Step Number of Steps Climbed 3 Stair Climbing Set # Repetitions (reps) 3 Comments Stair Climbing Comments Pt able to climb stairs safely with good attention to foot clearance and safe pacing. PT-Balance Assessment Sitting Balance and Reactions Static Sitting Balance Ability Good Dynamic Sitting Balance Ability Good Standing Balance and Reactions Static Standing Balance Ability Good Dynamic Standing Balance Ability Fair Device Used FWW M5 PT-IP Objective Assessments Start: 07/27/20 12:10 Freq: NEEDED Status: Active Protocol: Document 07/27/20 10:35 AB (Rec: 07/27/20 12:25 AB [id number]) Orientation Orientation/Cognition Level of Alertness Alert Orientation Name,Place,Situation Language Function Ability No Deficits Noted Safety Awareness Decreased Safety Awareness Gross Range of Motion Lower Extremity ROM Assessment Within Functional Limits Strength Comments Strength Comments RLE : 3+/5 LLE : 4-/5 Coordination Assessment Gross Coordination Gross Coordination WNL Sensation Assessment Sensation Gross Sensation WNL Muscle Tone Muscle Tone WNL Yes M6 PT-IP Treatment Start: 07/27/20 12:10 Freq: NEEDED Status: Active Protocol: Document 07/28/20 15:24 AW (Rec: 07/28/20 17:28 AW [id number]) Physical Therapy Treatment Education Education Provided Precautions,Safety M7 PT-IP Assessment and Plan Start: 07/27/20 12:10 Freq: NEEDED Status: Active Protocol: Document 07/28/20 15:24 AW (Rec: 07/28/20 17:28 AW [id number]) PT Summary Assessment and Plan Summary Impairments Pain,ROM,Strength,Balance, Coordination,Sensation,Tone, Cognition,Bed Mobility, Transfers,Gait,Activity Tolerance Progress Towards Goals Progressing Toward Goals,Slow Progress due to Pain Assessment Summary Pt continues to improve with mobility. She struggles most with transitioning from position to position but manages ambulation with FWW safely. She was able to clear stairs. Pt will be safe to discharge home with family assist once medically cleared. Home health therapy is indicated as pt unlikely to be leaving her house for therapy in the near future. Goals Bed Mobility Goal Independent Transfer Goal Independent Gait Goal Standby Assistance,Front Wheel Walker Gait Distance 200 Other Goals up/down 13 steps L rail ascending SBA up/down 4 steps B rail SBA Days to Meet Goals 5 Frequency of Treatment Frequency Of Treatment Twice a Day Treatment Plan Physical Therapy Treatment Plan Bed Mobility Training,Transfer Training,Gait Training, Therapeutic Exercise,Balance Retraining,Post Op Education, Discharge Planning,Hot or Cold Pack,Neuromuscular Re-ed, Coordination Retraining,Manual Therapy Other Recommendations and Next Treatment gait and stairs Focus Precautions Lumbar Precautions Log Roll,No Twisting,Limit Bending,Lifting Restriction of 10 lbs,Gait Belt above Incisional Area Recommendations To Nursing Amount of Assist Needed 1 Person Assist Discharge Recommendations PT Discharge Recommendations Home with Assistance,Home Health Transportation Needs at Discharge Private Vehicle
[2020-07-28 15:25] VITALS: BP 115/77; PULSE 96; RESP 17; TEMP 36.9; O2SAT 95
--- NOTE | 2020-07-28 15:58 | PC.NURSE ---
Pain control concerns expressed by pt this am. Dr. Cleary made aware. Tried T3 first per pt request. Med was ineffective for pain control and given dilaudid. Pt reported dilaudid did control the pain. Also got dilaudid this afternoon. Pt again reported pain med effective, was able to work with PT. Did certified social workers in health care training for home and does think she could go home tomorrow. No use of morphine IV today.
[2020-07-28 18:53] VITALS: BP 133/74; PULSE 88; RESP 17; TEMP 37.4; O2SAT 98
[2020-07-28] MEDS: GABAPENTIN 300 MG CAPSULE 900 MG PO (21:46)
[2020-07-28] MEDS: SENNOSIDES 8.6 MG TABLET 17.2 MG PO (21:46)
[2020-07-28] MEDS: TRIAMTERENE/HCTZ 37.5/25 CAPSULE 1 CAP PO (21:47)
[2020-07-28] MEDS: AMLODIPINE 5 MG TABLET PO (21:47)
[2020-07-28] MEDS: ATORVASTATIN 20 MG TABLET 40 MG PO (21:47)
[2020-07-29] VITALS (7 sets, daily range): BP systolic 100–129; BP diastolic 61–75; PULSE 85–103; RESP 16–18; TEMP 36.2–36.9; O2SAT 94–97
[2020-07-29] MEDS: hydrOXYzine pamoate 25 MG CAPSULE PO ×6 (00:09→21:54)
[2020-07-29] MEDS: HYDROMORPHONE 4 MG TABLET PO ×4 (03:00→14:48)
[2020-07-29] MEDS: LEVOTHYROXINE 25 MCG TABLET PO (05:32)
--- NOTE | 2020-07-29 07:32 | PM.PNPO.1 ---
Subjective Subjective Date Patient Seen: 07/29/20 Time Patient Seen: 07:33 Interval history: Patient states she is doing well overall and is in minimal discomfort at rest. She notes that the majority of her pain is located around her left hip and when asked to identify the exact area she points to the left flank. Patient also notes that her pain is exacerbated with movement. At this time she denies fever, chills, nausea, chest pain, shortness of breath, or urinary retention. Patient states she is looking forward to being discharged home, however she is apprehensive about discharge due to her issues with pain. Exam Vital Signs (past 8 hours): - 07/29/20 00:10 Temperature 98.4 F Pulse Rate 94 H Respiratory Rate 16 Blood Pressure 118/61 Pulse Oximetry 96 Oxygen Delivery Method Room Air Oxygen Flow Rate 0 Narrative Exam Narrative: 70-year-old female postop day 3. Patient is resting comfortably in bed, is in no acute distress, is alert and oriented x3. Skin is warm dry, and the skin surrounding the incision site is free of erythema, warmth, induration, or discharge. Dressing over the incision site is clean and dry and is free of strike through. Good sensation appreciated throughout the bilateral lower extremities light touch. Ankle dorsiflexion, plantar flexion, eversion, inversion performed bilaterally without difficulty or discomfort. Hip flexion performed bilaterally, slight pain elicited when hip flexed against resistance on the left. Calves are soft and nontender, negative Homans sign. Palpable pulses appreciated, capillary refill less than 2 seconds. No other signs of DVT appreciated. Const General: cooperative, healthy appearing and comfortable Resp Effort & Inspection: normal respiratory effort and able to speak in complete sentences Skin General: no rashes or lesions noted [facility] Medical History Arthritis Asthma Easy bruisability Fragile skin HLD (hyperlipidemia) HTN (hypertension) Nerve pain due to spinal stenosis Numbness and tingling Seasonal allergies Surgical History H/O: hysterectomy History of 2 sections Hx of appendectomy Hx of fusion of cervical spine (07/22/18) S/P cervical spinal fusion (~10/2011) Status post Mohs surgery for basal cell carcinoma Social History household members: children and none Smoking Status: Never smoker alcohol intake: current Assessment & Plan Post-op Postoperative Procedures: Procedures Operation Date: 07/26/20 07:45 Actual Procedures Side Surgeon p L2-3 TLIF, L1-2 with L1-3 with posterior instrumentation Arcadio Keita MD Postoperative day: 3 Postoperative status: doing well Postoperative plan: ambulate Postoperative plan narrative: Patient is to continue working on ambulation with the assistance of a front wheel walker with physical therapy. Pain management regimen is to be continued as it is adequately controlled patient's pain level at this time with the addition of Vistaril. Plan is to have the patient continue to work with physical therapy today and pending successful work the patient may be discharged home. Time Spent With Patient Time with patient: 15-24 minutes Quality VTE Deep Vein Thrombosis/Pulmonary Embolism Present on Admission: No
[2020-07-29] MEDS: PANTOPRAZOLE DR 40 MG TABLET PO (07:51)
[2020-07-29] MEDS: DOCUSATE 100 MG CAPSULE PO ×2 (07:51→21:54)
[2020-07-29] MEDS: SODIUM CHLORIDE 0.9% FLUSH 10 ML IV ×2 (08:47→22:35)
--- NOTE | 2020-07-29 09:44 | PT.IPTN ---
Current Diagnoses Other secondary scoliosis, lumbar region (07/26/20) Spinal stenosis, lumbar region without neurogenic claudication (07/26/20) Surgery Performed Operation Date: 07/26/20 07:45 Actual Procedures p L2-3 TLIF, L1-2 with L1-3 with posterior instrumentation - Arcadio Keita MD Physical Therapy Treatment Note M2 PT-IP Current Condition Start: 07/27/20 12:10 Freq: NEEDED Status: Active Protocol: Document 07/27/20 10:35 AB (Rec: 07/27/20 12:25 AB [id number]) Physical Therapy Current Condition Current Condition Evaluation Date 07/27/20 Treatment Diagnosis s/p L1-2, L2-3 fusion; difficulty in walking Onset Date 07/26/20 Precautions Lumbar Precautions Log Roll,No Twisting,Limit Bending,Lifting Restriction of 10 lbs,Gait Belt above Incisional Area M3 PT-IP Subjective Start: 07/27/20 12:10 Freq: NEEDED Status: Active Protocol: Document 07/29/20 09:12 LJ (Rec: 07/29/20 09:44 LJ [id number]) Subjective Physical Therapy Visit Type Type Treatment Note Visit Start Time 09:12 Visit Stop Time 09:30 Total Visit Minutes 18 Physical Therapy Visit Comments Patient Comments Pt willing to work with PT. Therapy Pain Assessment Pain When Pain Assessed At Rest Pain Present Pain Present Pain Reported M4 PT-IP Mobility and Gait Start: 07/27/20 12:10 Freq: NEEDED Status: Active Protocol: Document 07/29/20 09:12 LJ (Rec: 07/29/20 09:44 LJ [id number]) PT-Bed Mobility Assessment Rolling Type of Rolling Log Rolling Level of Assist Standby Assistance PT-Transfer Assessment Sit to and From Stand Sit to and from Stand Standby Assistance,1 Person Assistance,Use of Upper Extremities Equipment Transfer Assistive Device Gait Belt,Front Wheeled Walker Orthotic/Prosthetic Devices or Brace: No Transfers Transfer Destination Chair,Toilet Comments Mobility Comments Pt on right side in bed upon arrival. C/o increased pain right side low back. She was able to push herself to sitting on side of bed with proper technique. Sit<>stand transfers from bed and toilet SBA with use of UEs. Performed proper hinging at hips. Pt performed pericare independently but required assist with pulling up brief and pants. Pt then ambulated in hallway~250' using FWW and SBA. Returned to room as OT entered. Pt sat in chair and began working with OT. Gait Assessment Gait Gait Assistance Required: Standby Assistance Distance (Feet) 250 Assistive Devices Assistive Device Gait Belt,Front Wheeled Walker Orthotic/Prosthetic Devices or Brace: No Gait Deviations General Gait Pattern Antalgic,Decreased Stride Length,Decreased Feet Clearance,Narrow Based Gait Factors Limiting Gait Function Factors Limiting Gait Function Decreased Activity Tolerance, Decreased Strength,Limited Range of Motion,Pain,Poor Balance,Poor Safety Awareness Comments Gait Comments Gait is slow and steady. Practised turning properly to avoid twisting. Pt understood and was able to do so. M5 PT-IP Objective Assessments Start: 07/27/20 12:10 Freq: NEEDED Status: Active Protocol: Document 07/27/20 10:35 AB (Rec: 07/27/20 12:25 AB [id number]) Orientation Orientation/Cognition Level of Alertness Alert Orientation Name,Place,Situation Language Function Ability No Deficits Noted Safety Awareness Decreased Safety Awareness Gross Range of Motion Lower Extremity ROM Assessment Within Functional Limits Strength Comments Strength Comments RLE : 3+/5 LLE : 4-/5 Coordination Assessment Gross Coordination Gross Coordination WNL Sensation Assessment Sensation Gross Sensation WNL Muscle Tone Muscle Tone WNL Yes M6 PT-IP Treatment Start: 07/27/20 12:10 Freq: NEEDED Status: Active Protocol: Document 07/29/20 09:12 (Rec: 07/29/20 09:44 LJ [id number]) Physical Therapy Treatment Education Education Provided Precautions,Safety M7 PT-IP Assessment and Plan Start: 07/27/20 12:10 Freq: NEEDED Status: Active Protocol: Document 07/29/20 09:12 (Rec: 07/29/20 09:44 LJ [id number]) PT Summary Assessment and Plan Potential Rehabilitation Potential Good Summary Impairments Pain,ROM,Strength,Balance, Coordination,Sensation,Tone, Cognition,Bed Mobility, Transfers,Gait,Activity Tolerance Progress Towards Goals Progressing Toward Goals,Slow Progress due to Pain Assessment Summary Pt ambulation is slow and steady with proper use of FWW without relying heavily on it. Transition from sidelying to sitting on side of bed improved. Good adherence to hip hinging and proper turining to avoid twisting. Safe to DC home with assist once medically cleared/ Goals Bed Mobility Goal Independent Transfer Goal Independent Gait Goal Standby Assistance,Front Wheel Walker Gait Distance 200 Other Goals up/down 13 steps L rail ascending SBA up/down 4 steps B rail SBA Days to Meet Goals 5 Frequency of Treatment Frequency Of Treatment Twice a Day Treatment Plan Physical Therapy Treatment Plan Bed Mobility Training,Transfer Training,Gait Training, Therapeutic Exercise,Balance Retraining,Post Op Education, Discharge Planning,Hot or Cold Pack,Neuromuscular Re-ed, Coordination Retraining,Manual Therapy Other Recommendations and Next Treatment gait and stairs Focus Precautions Lumbar Precautions Log Roll,No Twisting,Limit Bending,Lifting Restriction of 10 lbs,Gait Belt above Incisional Area Recommendations To Nursing Amount of Assist Needed 1 Person Assist Discharge Recommendations PT Discharge Recommendations Home with Assistance,Home Health Transportation Needs at Discharge Private Vehicle
--- NOTE | 2020-07-29 10:06 | OT.IP.TRT ---
Current Diagnoses Other secondary scoliosis, lumbar region (07/26/20) Spinal stenosis, lumbar region without neurogenic claudication (07/26/20) Surgery Performed Operation Date: 07/26/20 07:45 Actual Procedures p L2-3 TLIF, L1-2 with L1-3 with posterior instrumentation - Arcadio Keita MD Occupational Therapy Treatment Note M2 OT-IP Current Condition Start: 07/27/20 13:09 Freq: Status: Active Protocol: Document 07/27/20 13:09 CGR (Rec: 07/27/20 13:27 CGR [id number]) Occupational Therapy Current Condition Current Condition Evaluation Date 07/27/20 Treatment Diagnosis L-3 TLIF Diagnosis Onset Date 07/26/20 Post Operative Precautions Lumbar Precautions Log Roll,No Twisting,Limit Bending,Lifting Restriction of 10 lbs,Gait Belt above Incisional Area M3 OT- IP Subjective and Pain Start: 07/27/20 13:09 Freq: Status: Active Protocol: Document 07/29/20 12:58 CGR (Rec: 07/29/20 13:02 CGR [id number]) OT- Subjective Occupational Therapy Visit Type Type Progress Note Visit Start Time 09:28 Visit Stop Time 10:06 Total Visit Minutes 38 Notes Pt requesting shower. OT Pain Assessment Pain When Pain Assessed During Mobility Pain Present Pain Present Pain Reported Location back Intensity 7 Scale Used Numeric (0 - 10) Management Techniques Distraction,Modification of Treatment,Re-positioning M4 OT- IP ADL's Start: 07/27/20 13:09 Freq: Status: Active Protocol: Document 07/29/20 12:58 CGR (Rec: 07/29/20 13:02 CGR [id number]) OT [id number] Comments OT Self-Feeding Comments Not meal time OT ADL-Grooming General Evaluation Grooming Ability Independent Areas Needing Assistance Combing/Brushing Hair OT ADL-Oral Care Comments Oral Care Comments not performed OT ADL-Dressing General Eval Upper Body Dressing Ability Independent Lower Body Dressing Ability Minimal Assistance Areas Needing Assistance Retrieving/Set-up of Clothing, Pull-Over Shirt,Underpants/ Brief,Pants/Shorts,Socks,Shoes Comments OT Dressing Comments Pt is able to perform LB dressing without assist sitting in a supported chair. Pt requested assist with dressing pants d/t increased pain. Pt declined use of DME and states that her family will assist if she needs it at home. OT ADL-Toileting Comments OT Toileting Comments not performed OT ADL-Bathing Bathing Type Bathing Type Shower General Evaluation Bathing Ability Minimal Assistance Areas Needing Assistance Retrieving/Setting Up Items, Wash/Dry Back,Wash/Dry Lower Extremities Devices Bathing Equipment Hand Held Shower Sprayer, Shower Chair with Arms M5 OT- IP IADL's Start: 07/27/20 13:09 Freq: Status: Active Protocol: Document 07/27/20 13:09 CGR (Rec: 07/27/20 13:27 CGR [id number]) OT-Instrumental Activities of Daily Living Deficits IADL Deficits Identified No Deficits Home Safety Awareness Awareness of Need for Assistance at Home Good Awareness Ability to Problem Solve Emergency Able to Problem Solve Situations Medication Management Medication Management No Deficits Identified Money Management Money Management No Deficits Identified Meal Preparation Meal Preparation No Deficits Identified Certified Rehabilitation Counselor Certified Rehabilitation Counselor No Deficits Identified M6 OT- IP Functional Cognition Start: 07/27/20 13:09 Freq: Status: Active Protocol: Document 07/27/20 13:09 CGR (Rec: 07/27/20 13:27 CGR [id number]) Cognitive Factors Limiting Selfcare Function Cognitive Ability Level of Alertness Alert Patient Orientation Name,Age,Birthday,Month,Date, Year,Day of Week,Place, Situation Attention Span Ability Capable of Focused Attention, Capable of Sustained Attention Ability to Follow Commands Able to Follow Multi-Step Commands Memory Description No Deficits Noted Safety Awareness No Deficits Noted OT- Vision and Hearing OT- Hearing Assessment OT- Hearing Assessment WFL OT- Vision Assessment Visual Acuity Glasses All The Time Visual Attentiveness WFL Occular Pursuits WFL Vision Assessment Comments Pt wears bifocals in the hospital but typically wears contacts. M7 OT- IP Mobility and Balance Start: 07/27/20 13:09 Freq: Status: Active Protocol: Document 07/29/20 12:58 CGR (Rec: 07/29/20 13:02 CGR [id number]) OT-Transfer Assessment Sit to and From Stand Sit to and from Stand Standby Assistance Transfers Transfer Ability Standby Assistance Technique Transfer Destination Bedside Commode,Chair,Shower Stall Transfer Technique Stand Step Pivot Devices Transfer Assistive Devices Gait Belt,Front Wheeled Walker Comments Mobility Comments Pt mobilizes around the room without physical assist. OT- Balance Assessment Sitting Balance and Reactions Static Sitting Balance Ability Good Dynamic Sitting Balance Ability Good M8 OT- IP Objective Assessments Start: 07/27/20 13:09 Freq: Status: Active Protocol: Document 07/27/20 13:09 CGR (Rec: 07/27/20 13:27 CGR [id number]) OT Gross Range of Motion Upper Extremity Range of Motion Assessment Within Functional Limits OT Strength Upper Extremity Strength Assessment Within Functional Limits OT- Coordination Assessment Upper Extremity Finger to Nose Test Within Functional Limits Finger Tapping Test Within Functional Limits OT-Muscle Tone Assessment Muscle Tone WNL Yes OT Sensation Assessment Edema Edema Absent M9 OT- IP Assessment and Plan Start: 07/27/20 13:09 Freq: Status: Active Protocol: Document 07/29/20 12:58 CGR (Rec: 07/29/20 13:02 CGR [id number]) OT Summary Assessment and Plan Potential Rehabilitation Potential Excellent Analytic Complexity at Evaluation Moderate Summary OT Impairments Pain,Balance,Functional Mobility,Self-Feeding,Grooming ,Dressing,Toileting,Bathing, Toilet Transfers,Shower Transfers,Activity Tolerance Progress Towards Goals Slow Progress due to Pain Assessment Summary Pt presents as a moderate complexity evaluation s/p admit for L1-3 TLIF. Pt is experiencing significant pain with movement at this time and was limited in her abilities. Pt was able to shower on this date and perform most LB dressing without assist. Pt will have help at home for the first week. Pt is safe for d/c home at this time. Goals Grooming Goal Independent Dressing Goal Independent Toileting Goal Independent Bathing Goal Independent Toilet Transfer Goal Independent Shower Transfer Goal Independent Days to Meet Goals 10 Frequency of Treatment Frequency Of Treatment Once a Day Treatment Plan OT Treatment Plan ADL Training,Functional Mobility,Patient/Family Education,Discharge Planning Other Treatment Recommendations and Next shower and LB dressing. Treatment Focus Discharge Recommendations OT Discharge Recommendations Home with Assistance,SNF Rehab Transportation Needs at Discharge Private Vehicle
--- NOTE | 2020-07-29 12:30 | P.DS_ITS ---
History of Present Illness History of Present Illness Date Patient Seen: 07/29/20 Time Patient Seen: 12:30 Chief complaint: TLIF *OPB* Narrative: Refer to previous HPI. Discharge Providers Provider Date of admission: 07/26/20 06:04 Discharge Date: 07/29/20 Primary care physician: Nash Andre DO Consults: 07/26/20 13:09 Consult to Occupational Therapy Evaluate & Treat Comment: Physician Instructions: Evaluate and treat Consult to Physical Therapy Evaluate & Treat Comment: Physician Instructions: Evaluate and Treat 07/29/20 08:07 Consult to Home Health Routine Comment: TLIF Reason For Exam: Set up RN/PT/OT for d/c home Discharge provider: Jesus Galeana PA-C Summary Hospital Course Discharge Diagnosis: Lumbar scoliosis L1-2, L2-3 spinal stenosis Lumbar spondylosis with radiculopathy Status post L2-3 posterolateral and posterior interbody fusion, L1-2, L2-3 decompression laminectomies, L2-3 interbody cage placement, L1-2 posterolateral fusion, L1-3 posterior segemental instrumentation, [place] of bone marrow from iliac crest, Utilization of microsurgical technique and operating microscope Hospital Course: The patient was admitted to the hospital following the above- listed procedure for the above-listed diagnosis. Following the procedure the patient has been convalescing appropriately in her pain has been managed with current pain management regimen. Throughout the course of her stay in the hospital the patient has denied fever, chills, nausea, chest pain, shortness of breath, urinary retention, or numbness and tingling in the extremities. The patient has successfully worked on ambulation and stair [place] with physical therapy. Throughout her time in the hospital the patient has had her dressing changed as needed if it became damaged or soiled. Sequential compression devices have been used on the bilateral lower extremities for DVT prophylaxis. Patient has remained weight-bearing as tolerated with the assistance of a front wheeled walker, while also avoiding bending, twisting, or lifting in excess of 10 lb. Status at Discharge Cognitive/behavioral status at discharge: oriented Functional status at discharge: uses cane/walker Overall status at discharge: patient is progressing back to baseline Exam Vital Signs (past 8 hours): - 07/29/20 07:20 07/29/20 11:30 Temperature 97.1 F L 97.3 F L Pulse Rate 103 H 90 Respiratory Rate 16 16 Blood Pressure 118/75 124/63 Pulse Oximetry 97 95 Oxygen Delivery Method Room Air Oxygen Flow Rate 0 Narrative Exam Narrative: 70-year-old female postop day 3. Patient is resting comfortably in bed, is in no acute distress, is alert and oriented x3. Skin is warm dry, and the skin surrounding the incision site is free of erythema, warmth, induration, or discharge. Dressing over the incision site is clean and dry and is free of strike through. Good sensation appreciated throughout the bilateral lower extremities light touch. Ankle dorsiflexion, plantar flexion, eversion, inversion performed bilaterally without difficulty or discomfort. Hip flexion performed bilaterally, slight pain elicited when hip flexed against resistance on the left. Calves are soft and nontender, negative Homans sign. Palpable pulses appreciated, capillary refill less than 2 seconds. No other signs of DVT appreciated. Const General: cooperative, healthy appearing and comfortable Resp Effort & Inspection: normal respiratory effort and able to speak in complete sentences Skin General: no rashes or lesions noted PFSH Medical History Arthritis Asthma Easy bruisability Fragile skin HLD (hyperlipidemia) HTN (hypertension) Nerve pain due to spinal stenosis Numbness and tingling Seasonal allergies Surgical History H/O: hysterectomy History of 2 sections Hx of appendectomy Hx of fusion of cervical spine (07/22/18) S/P cervical spinal fusion (~10/2011) Status post Mohs surgery for basal cell carcinoma Social History household members: children and none Smoking Status: Never smoker alcohol intake: current Discharge Assessment & Plan Assessment and Plan Assessment: Patient is doing well. Plan of Treatment: Patient is to remain weight-bearing as tolerated with the assistance of a front wheeled walker. Patient is also to avoid bending, twisting, or lifting in excess of 10 lb. Her current pain management regimen is to be continued as it has adequately controlled the patient's pain level at this time. First postoperative visit in clinic is scheduled for 2 weeks following discharge from hospital. Patient is to have dressing over the incision sites changed as needed if it becomes damaged or soiled. Patient is to alert the clinic with any concerns or questions. Any signs of increased redness, swelling, pain, warmth, or discharge from the incision site should be reported to the clinic. Discharge Plan Discharge Plan Patient Disposition: Home Provider Discharge Comment: Patient cleared for discharge pending PT clearance. Discharge orders & Medications Prescriptions: New acetaminophen 325 mg Tablet 650 mg PO Q6HR PRN (Reason: Pain, Mild (1-3)) Qty: 90 RF: 0 hydromorphone 4 mg Tablet 4 mg PO Q4HR PRN (Reason: Pain, Severe (7-10)) Qty: 42 RF: 0 hydroxyzine pamoate 25 mg Capsule 25 mg PO Q4HR PRN (Reason: Nausea And Vomiting) Qty: 42 RF: 0 Continued amlodipine 5 mg Tablet 5 mg PO BEDTIME RF: 0 triamterene-hydrochlorothiazid 37.5-25 mg Capsule 1 cap PO BEDTIME RF: 0 zolpidem [Ambien] 10 mg Tablet 5 mg PO BEDTIME PRN (Reason: Sleep) RF: 0 levothyroxine 25 mcg Tablet 25 mcg PO DAILY RF: 0 pantoprazole 40 mg Tablet,Delayed Release (Dr/Ec) 40 mg PO DAILY RF: 0 gabapentin 300 mg Capsule 900 mg PO BEDTIME RF: 0 rosuvastatin 20 mg Tablet 20 mg PO BEDTIME RF: 0 sumatriptan succinate 100 mg Tablet 100 mg PO Q2-4H PRN (Reason: Migraine Headache) RF: 0 Follow up/Referrals: Nash Andre DO [Primary Care Provider] - Diet/Activity/Treatments Diet: Diet as Tolerated Activity: Weight bearing as tolerated with the assistance of a front wheeled walker. Avoid bending, twisting, or lifting in excess of 10 lbs. Skin/Wound/Dressing Care Report to your healthcare provider any signs of infection, such as:: chills, fever, night sweats, increased pain, unusual drainage and unusual redness Dressing: Dressing over incision can be changed as needed if it becomes damaged or soiled. Other wound treatment: Avoid placing topical ointments over the incision site. Visit Report/Discharge Packet Instructions: DI for Heart Failure, DI for Prescription Opioid Use, DI for Transforaminal Lumbar Interbody Fusion Stand Alone Forms: Surgery Discharge Discharge Data Primary Care Provider: Nash Andre VTE Deep Vein Thrombosis/Pulmonary Embolism Present on Admission: No
--- NOTE | 2020-07-29 15:01 | PT-IP ANOTE ---
Pt seen for PM treat but she is preparing for discharge. States her friend has procured a FWW for home use. Pt refusing treatment.
[2020-07-29] MEDS: MORPHINE 2 MG/ML INJ IV (18:05)
[2020-07-29] MEDS: ACETAMINOPHEN 325 MG TABLET 650 MG PO (18:12)
--- NOTE | 2020-07-29 18:29 | PC.NURSE ---
Addendum entered by Gisselle Doherty R.N. 07/29/20 19:53: 1851 Dr Keita with call back to this RN. Dr Keita updated on patient condition, no new orders. Patient currently resting with 6/10 pain post 2mg IV Morphine. Dr Keita ok with patient receiving follow-up 2mg PO Dilaudid due to previous drop in BP with 4mg PO Dilaudid. Per patient preference to stay overnight due to incident of break through pain, Dr Keita aware. Plan to medicate patient with PRN 25mg Vistaril and 2mg Dilaudid every 4 hours as needed and PIV Morphine for breakthrough pain. Original Note: Evening Shift Patient with significant pain control issues post 4mg of PO Dialudid and 24mg Vistaril. Complaint of 10/10 left hip pain. Patient with pending discharge orders. This RN placed call to recovery, Dr Keita currently in OR. This RN awaiting call back. Patient medicated with 2mg PIV Morphine due to PO medication not available per MAY.
[2020-07-29] MEDS: HYDROMORPHONE 2 MG TABLET PO ×2 (19:06→22:36)
[2020-07-29] MEDS: AMLODIPINE 5 MG TABLET PO (21:54)
[2020-07-29] MEDS: SENNOSIDES 8.6 MG TABLET 17.2 MG PO (21:54)
[2020-07-29] MEDS: GABAPENTIN 300 MG CAPSULE 900 MG PO (21:54)
[2020-07-29] MEDS: ATORVASTATIN 20 MG TABLET 40 MG PO (21:54)
[2020-07-30] MEDS: HYDROMORPHONE 4 MG TABLET PO ×2 (03:19→07:02)
[2020-07-30 03:26] VITALS: BP 148/80; PULSE 85; RESP 18; TEMP 36.6; O2SAT 96
[2020-07-30] MEDS: hydrOXYzine pamoate 25 MG CAPSULE PO (06:08)
[2020-07-30] MEDS: LEVOTHYROXINE 25 MCG TABLET PO (06:08)
--- NOTE | 2020-07-30 07:34 | PM.DS.1 ---
History of Present Illness History of Present Illness Date Patient Seen: 07/30/20 Time Patient Seen: 07:34 Chief complaint: TLIF *OPB* Narrative: Patient states she was having significant pain yesterday evening. She was treated for pain overnight. Patient notes pain is significantly better this morning. She is having vpkf-bn-gxyqtjdv pain. She does have assistance at home. She does feel ready to be discharged home today. Otherwise without complaints. Discharge Providers Provider Date of admission: 07/26/20 06:04 Discharge Date: 07/30/20 Primary care physician: Nash Andre DO Consults: 07/26/20 13:09 Consult to Occupational Therapy Evaluate & Treat Comment: Physician Instructions: Evaluate and treat Consult to Physical Therapy Evaluate & Treat Comment: Physician Instructions: Evaluate and Treat 07/29/20 08:07 Consult to Home Health Routine Comment: TLIF Reason For Exam: Set up RN/PT/OT for d/c home Discharge provider: Christopher Reynolds PA-C Summary Hospital Course Discharge Diagnosis: 1. Lumbar scoliosis 2. SPinal stenosis L1-2, L2-3 3. Lumbar spondylosis with radiculopathy Hospital Course: 1. L2-3 posterolateral and posterior interbody fusion 2. L1-2, L2-3 decompression laminectomies 3. L2-3 interbody cage placement 4. L1-2 posterolateral fusion 5. L1-3 posterior segemental instrumentation 6. Brillion of bone marrow from iliac crest 7. Utilization of microsurgical technique and operating microscope Same procedure as scheduled: Yes Indications: Patient has been having chronic back pain and worsening lumbar radiculopathy. Patient has history of idiopathic scoliosis with worsening back pain and radiculopathy and difficulty performing activities of daily living. Patient failed multiple conservative management with worsening pain weakness and numbness in her lower extremity. Patient has been having difficulty performing activity of daily living. After discussing risks benefits of treatment options, patient elected proceed with surgery. Surgeon: Arcadio Keita Grain Origination Specialist: Sabas Cleary Click Yes if Unassisted: No Anesthesia Type: General Operative Notes Closure Type: primary Specimen(s): none sent Prosthetic devices, grafts, tissues, transplants, or devices: Globus revolve screws, Rise cage Applied: catheter Estimated Blood Loss (mL): 100 Blood products transfused: none Patient was admitted to the hospital for the above-mentioned procedure. Patient consented to the same. Patient taken to operating room on July 26, 2020. Patient back in her room recovering well as in stable condition. Patient had uncontrolled pain yesterday prior to discharge. She was held over for continued pain management. She stable. Pain is well controlled. She does have assistance at home. She will be discharged home today in stable condition. Status at Discharge Cognitive/behavioral status at discharge: at baseline, oriented Functional status at discharge: uses cane/walker Overall status at discharge: patient is progressing back to baseline Time Spent with Patient Time spent: Less than 30 minutes Exam Vital Signs (past 8 hours): - 07/30/20 03:26 Temperature 97.8 F Pulse Rate 85 Respiratory Rate 18 Blood Pressure 148/80 H Pulse Oximetry 96 Oxygen Delivery Method Room Air Oxygen Flow Rate 0 Narrative Exam Narrative: Pleasant 70-year-old female resting comfortably in bed in no apparent distress. Sensation is grossly intact to light touch bilateral lower extremities. Motor functions intact bilateral lower extremities. Dressing is Clean, dry, intact.. PFSH Medical History Arthritis Asthma Easy bruisability Fragile skin HLD (hyperlipidemia) HTN (hypertension) Nerve pain due to spinal stenosis Numbness and tingling Seasonal allergies Surgical History H/O: hysterectomy History of 2 sections Hx of appendectomy Hx of fusion of cervical spine (07/22/18) S/P cervical spinal fusion (~10/2011) Status post Mohs surgery for basal cell carcinoma Social History household members: children and none Smoking Status: Never smoker alcohol intake: current Discharge Assessment & Plan Assessment and Plan Assessment: Patient is doing well. Plan of Treatment: Patient is to remain weight-bearing as tolerated with the assistance of a front wheeled walker. Patient is also to avoid bending, twisting, or lifting in excess of 10 lb. Her current pain management regimen is to be continued as it has adequately controlled the patient's pain level at this time. First postoperative visit in clinic is scheduled for 2 weeks following discharge from hospital. Patient is to have dressing over the incision sites changed as needed if it becomes damaged or soiled. Patient is to alert the clinic with any concerns or questions. Any signs of increased redness, swelling, pain, warmth, or discharge from the incision site should be reported to the clinic. Discharge Plan Discharge Plan Patient Disposition: Home Provider Discharge Comment: Patient cleared for discharge today. Discharge orders & Medications Prescriptions: New acetaminophen 325 mg Tablet 650 mg PO Q6HR PRN (Reason: Pain, Mild (1-3)) Qty: 90 RF: 0 hydromorphone 4 mg Tablet 4 mg PO Q4HR PRN (Reason: Pain, Severe (7-10)) Qty: 42 RF: 0 hydroxyzine pamoate 25 mg Capsule 25 mg PO Q4HR PRN (Reason: Nausea And Vomiting) Qty: 42 RF: 0 Continued amlodipine 5 mg Tablet 5 mg PO BEDTIME RF: 0 triamterene-hydrochlorothiazid 37.5-25 mg Capsule 1 cap PO BEDTIME RF: 0 zolpidem [Ambien] 10 mg Tablet 5 mg PO BEDTIME PRN (Reason: Sleep) RF: 0 levothyroxine 25 mcg Tablet 25 mcg PO DAILY RF: 0 pantoprazole 40 mg Tablet,Delayed Release (Dr/Ec) 40 mg PO DAILY RF: 0 gabapentin 300 mg Capsule 900 mg PO BEDTIME RF: 0 rosuvastatin 20 mg Tablet 20 mg PO BEDTIME RF: 0 sumatriptan succinate 100 mg Tablet 100 mg PO Q2-4H PRN (Reason: Migraine Headache) RF: 0 Follow up/Referrals: Nash Andre DO [Primary Care Provider] - Arcadio Keita MD [Physician] - (2 wks) Diet/Activity/Treatments Diet: Diet as Tolerated Activity: Weight bearing as tolerated with the assistance of a front wheeled walker. Avoid bending, twisting, or lifting in excess of 10 lbs. Skin/Wound/Dressing Care Report to your healthcare provider any signs of infection, such as:: chills, fever, night sweats, increased pain, unusual drainage and unusual redness Dressing: Dressing over incision can be changed as needed if it becomes damaged or soiled. Other wound treatment: Avoid placing topical ointments over the incision site. Visit Report/Discharge Packet Instructions: DI for Heart Failure, DI for Prescription Opioid Use, DI for Transforaminal Lumbar Interbody Fusion Stand Alone Forms: Surgery Discharge Discharge Data Primary Care Provider: Nash Andre Quality VTE Deep Vein Thrombosis/Pulmonary Embolism Present on Admission: No
--- NOTE | 2020-07-30 07:38 | PM.DS.1 ---
History of Present Illness History of Present Illness Chief complaint: TLIF *OPB* Narrative: Patient states she was having significant pain yesterday evening. She was treated for pain overnight. Patient notes pain is significantly better this morning. She is having glsd-[id number] pain. She does have assistance at home. She does feel ready to be discharged home today. Otherwise without complaints. Discharge Providers Provider Date of admission: 07/26/20 06:04 Discharge Date: 07/30/20 Primary care physician: Nash Andre DO Consults: 07/26/20 13:09 Consult to Occupational Therapy Evaluate & Treat Comment: Physician Instructions: Evaluate and treat Consult to Physical Therapy Evaluate & Treat Comment: Physician Instructions: Evaluate and Treat 07/29/20 08:07 Consult to Home Health Routine Comment: TLIF Reason For Exam: Set up RN/PT/OT for d/c home Discharge provider: Christopher Reynolds PA-C Exam Vital Signs (past 8 hours): - 07/30/20 03:26 Temperature 97.8 F Pulse Rate 85 Respiratory Rate 18 Blood Pressure 148/80 H Pulse Oximetry 96 Oxygen Delivery Method Room Air Oxygen Flow Rate 0 PFSH Medical History Arthritis Asthma Easy bruisability Fragile skin HLD (hyperlipidemia) HTN (hypertension) Nerve pain due to spinal stenosis Numbness and tingling Seasonal allergies Surgical History H/O: hysterectomy History of 2 sections Hx of appendectomy Hx of fusion of cervical spine (07/22/18) S/P cervical spinal fusion (~10/2011) Status post Mohs surgery for basal cell carcinoma Social History household members: children and none Smoking Status: Never smoker alcohol intake: current Discharge Assessment & Plan Assessment and Plan Assessment: Patient is doing well. Plan of Treatment: Patient is to remain weight-bearing as tolerated with the assistance of a front wheeled walker. Patient is also to avoid bending, twisting, or lifting in excess of 10 lb. Her current pain management regimen is to be continued as it has adequately controlled the patient's pain level at this time. First postoperative visit in clinic is scheduled for 2 weeks following discharge from hospital. Patient is to have dressing over the incision sites changed as needed if it becomes damaged or soiled. Patient is to alert the clinic with any concerns or questions. Any signs of increased redness, swelling, pain, warmth, or discharge from the incision site should be reported to the clinic. Discharge Plan Discharge Plan Patient Disposition: Home Provider Discharge Comment: Patient cleared for discharge today. Discharge orders & Medications Prescriptions: New acetaminophen 325 mg Tablet 650 mg PO Q6HR PRN (Reason: Pain, Mild (1-3)) Qty: 90 RF: 0 hydromorphone 4 mg Tablet 4 mg PO Q4HR PRN (Reason: Pain, Severe (7-10)) Qty: 42 RF: 0 hydroxyzine pamoate 25 mg Capsule 25 mg PO Q4HR PRN (Reason: Nausea And Vomiting) Qty: 42 RF: 0 Continued amlodipine 5 mg Tablet 5 mg PO BEDTIME RF: 0 triamterene-hydrochlorothiazid 37.5-25 mg Capsule 1 cap PO BEDTIME RF: 0 zolpidem [Ambien] 10 mg Tablet 5 mg PO BEDTIME PRN (Reason: Sleep) RF: 0 levothyroxine 25 mcg Tablet 25 mcg PO DAILY RF: 0 pantoprazole 40 mg Tablet,Delayed Release (Dr/Ec) 40 mg PO DAILY RF: 0 gabapentin 300 mg Capsule 900 mg PO BEDTIME RF: 0 rosuvastatin 20 mg Tablet 20 mg PO BEDTIME RF: 0 sumatriptan succinate 100 mg Tablet 100 mg PO Q2-4H PRN (Reason: Migraine Headache) RF: 0 Follow up/Referrals: Nash Andre DO [Primary Care Provider] - Arcadio Keita MD [Physician] - (2 wks) Diet/Activity/Treatments Diet: Diet as Tolerated Activity: Weight bearing as tolerated with the assistance of a front wheeled walker. Avoid bending, twisting, or lifting in excess of 10 lbs. Skin/Wound/Dressing Care Report to your healthcare provider any signs of infection, such as:: chills, fever, night sweats, increased pain, unusual drainage and unusual redness Dressing: Dressing over incision can be changed as needed if it becomes damaged or soiled. Other wound treatment: Avoid placing topical ointments over the incision site. Visit Report/Discharge Packet Instructions: DI for Heart Failure, DI for Prescription Opioid Use, DI for Transforaminal Lumbar Interbody Fusion Stand Alone Forms: Surgery Discharge Discharge Data Primary Care Provider: Nash Andre VTE Deep Vein Thrombosis/Pulmonary Embolism Present on Admission: No
[2020-07-30 09:08] VITALS: BP 148/78; PULSE 82; RESP 12; TEMP 36.4; O2SAT 95
--- NOTE | 2020-07-30 09:23 | OT.IP.TRT ---
Current Diagnoses Other secondary scoliosis, lumbar region (07/26/20) Spinal stenosis, lumbar region without neurogenic claudication (07/26/20) Surgery Performed Operation Date: 07/26/20 07:45 Actual Procedures p L2-3 TLIF, L1-2 with L1-3 with posterior instrumentation - Arcadio Keita MD Occupational Therapy Treatment Note M2 OT-IP Current Condition Start: 07/27/20 13:09 Freq: Status: Active Protocol: Document 07/27/20 13:09 CGR (Rec: 07/27/20 13:27 CGR [id number]) Occupational Therapy Current Condition Current Condition Evaluation Date 07/27/20 Treatment Diagnosis L-3 TLIF Diagnosis Onset Date 07/26/20 Post Operative Precautions Lumbar Precautions Log Roll,No Twisting,Limit Bending,Lifting Restriction of 10 lbs,Gait Belt above Incisional Area M3 OT- IP Subjective and Pain Start: 07/27/20 13:09 Freq: Status: Active Protocol: Document 07/30/20 09:52 [facility] (Rec: 07/30/20 09:56 [facility] [id number]) OT- Subjective Occupational Therapy Visit Type Type Treatment Note Visit Start Time 09:10 Visit Stop Time 09:23 Total Visit Minutes 13 Occupational Therapy Visit Comments Patient Comments Pt feeling much better and agreed to talk to OT regarding OT needs. Patient/Caregiver Goals TO go home. OT Pain Assessment Pain When Pain Assessed At Rest Pain Present Pain Present Denied Pain M4 OT- IP ADL's Start: 07/27/20 13:09 Freq: Status: Active Protocol: Document 07/30/20 09:52 [facility] (Rec: 07/30/20 09:56 [facility] [id number]) OT KED-Gulq-Lpwfnwi General Evaluation Self-Feeding Ability Independent OT ADL-Grooming Comments OT Grooming Comments NOt performed. OT ADL-Toileting Comments OT Toileting Comments Suggested may be a good idea to wear a pad at night to prevent from rushing to the bathroom as pt usually has to urinate often at night. Educated of possible use of toilet paper aid pending her ability to reach while standing. Pt not needing/wanting to use the bathroom at this time. OT ADL-Bathing Comments OT Bathing Comments Spoke of possible option of tub bench versus shower chair. M5 OT- IP IADL's Start: 07/27/20 13:09 Freq: Status: Active Protocol: Document 07/27/20 13:09 CGR (Rec: 07/27/20 13:27 CGR [id number]) OT-Instrumental Activities of Daily Living Deficits IADL Deficits Identified No Deficits Home Safety Awareness Awareness of Need for Assistance at Home Good Awareness Ability to Problem Solve Emergency Able to Problem Solve Situations Medication Management Medication Management No Deficits Identified Money Management Money Management No Deficits Identified Meal Preparation Meal Preparation No Deficits Identified Pharmacy Grad Intern Pharmacy Grad Intern No Deficits Identified M6 OT- IP Functional Cognition Start: 07/27/20 13:09 Freq: Status: Active Protocol: Document 07/27/20 13:09 CGR (Rec: 07/27/20 13:27 CGR [id number]) Cognitive Factors Limiting Selfcare Function Cognitive Ability Level of Alertness Alert Patient Orientation Name,Age,Birthday,Month,Date, Year,Day of Week,Place, Situation Attention Span Ability Capable of Focused Attention, Capable of Sustained Attention Ability to Follow Commands Able to Follow Multi-Step Commands Memory Description No Deficits Noted Safety Awareness No Deficits Noted OT- Vision and Hearing OT- Hearing Assessment OT- Hearing Assessment WFL OT- Vision Assessment Visual Acuity Glasses All The Time Visual Attentiveness WFL Occular Pursuits WFL Vision Assessment Comments Pt wears bifocals in the hospital but typically wears contacts. M7 OT- IP Mobility and Balance Start: 07/27/20 13:09 Freq: Status: Active Protocol: Document 07/30/20 09:52 [facility] (Rec: 07/30/20 09:56 [facility] [id number]) OT- Balance Assessment Sitting Balance and Reactions Static Sitting Balance Ability Normal M8 OT- IP Objective Assessments Start: 07/27/20 13:09 Freq: Status: Active Protocol: Document 07/27/20 13:09 CGR (Rec: 07/27/20 13:27 R [id number]) OT Gross Range of Motion Upper Extremity Range of Motion Assessment Within Functional Limits OT Strength Upper Extremity Strength Assessment Within Functional Limits OT- Coordination Assessment Upper Extremity Finger to Nose Test Within Functional Limits Finger Tapping Test Within Functional Limits OT-Muscle Tone Assessment Muscle Tone WNL Yes OT Sensation Assessment Edema Edema Absent M9 OT- IP Assessment and Plan Start: 07/27/20 13:09 Freq: Status: Active Protocol: Document 07/30/20 09:52 [facility] (Rec: 07/30/20 09:56 [facility] [id number]) OT Summary Assessment and Plan Potential Rehabilitation Potential Excellent Summary Progress Towards Goals Progressing Toward Goals Assessment Summary Pt states feeling much better today and mainly just wanting to have a bowel movement prior to going home. Able to finalize all OT suggestions and equipment needs with pt. Pt to go home with assist today and HH. Discharge Recommendations OT Discharge Recommendations Home with Assistance,Home Health Transportation Needs at Discharge Private Vehicle
--- NOTE | 2020-07-30 09:50 | PT.IPTN ---
Current Diagnoses Other secondary scoliosis, lumbar region (07/26/20) Spinal stenosis, lumbar region without neurogenic claudication (07/26/20) Surgery Performed Operation Date: 07/26/20 07:45 Actual Procedures p L2-3 TLIF, L1-2 with L1-3 with posterior instrumentation - Arcadio Keita MD Physical Therapy Treatment Note M2 PT-IP Current Condition Start: 07/27/20 12:10 Freq: NEEDED Status: Active Protocol: Document 07/27/20 10:35 AB (Rec: 07/27/20 12:25 AB [id number]) Physical Therapy Current Condition Current Condition Evaluation Date 07/27/20 Treatment Diagnosis s/p L1-2, L2-3 fusion; difficulty in walking Onset Date 07/26/20 Precautions Lumbar Precautions Log Roll,No Twisting,Limit Bending,Lifting Restriction of 10 lbs,Gait Belt above Incisional Area M3 PT-IP Subjective Start: 07/27/20 12:10 Freq: NEEDED Status: Active Protocol: Document 07/30/20 09:50 AB (Rec: 07/30/20 11:46 AB [id number]) Subjective Physical Therapy Visit Type Type Treatment Note Visit Start Time 09:50 Visit Stop Time 10:10 Total Visit Minutes 20 Number of ZIGZAG TOPSTITCHER Visits 0 Physical Therapy Visit Comments Patient Comments i am feeling much better Therapy Pain Assessment Pain When Pain Assessed At Rest Pain Present Pain Present Pain Reported Location back Intensity 3 Scale Used Numeric (0 - 10) Pain Management Techniques Apply Cold,Distraction, Modification of Treatment,Re- positioning,Timing of Activity with Medications M4 PT-IP Mobility and Gait Start: 07/27/20 12:10 Freq: NEEDED Status: Active Protocol: Document 07/30/20 09:50 AB (Rec: 07/30/20 11:46 AB [id number]) PT-Bed Mobility Assessment Rolling Type of Rolling Log Rolling Level of Assist Standby Assistance Supine to Sit Supine to Sit Standby Assistance Sit to Supine Sit to Supine Standby Assistance PT-Transfer Assessment Sit to and From Stand Sit to and from Stand Standby Assistance Equipment Transfer Assistive Device Gait Belt,Front Wheeled Walker Orthotic/Prosthetic Devices or Brace: No Transfers Transfer Destination Bed,Chair Transfer Technique ambulated using FWW Transfer Ability Level of Assist Standby Assistance,1 Person Assistance,Use of Upper Extremities Comments Mobility Comments pt sitting on chair and agreed to do PT. completed sit to stand SBA and ambulated in the hallway using FWW ~ 250 ft SBA. ambulated to the bed and demonstrated log roll sit<> supine SBA. ambulated back tot he chair using FWW SBA. positioned on chair. call light and table placed within reach. refused to do stair climbing again but was completed in previous tx sessions. Gait Assessment Gait Gait Assistance Required: Standby Assistance Distance (Feet) 250 Able to Maintain Weight Bearing Status Yes During Gait Assistive Devices Assistive Device Gait Belt,Front Wheeled Walker Orthotic/Prosthetic Devices or Brace: No Gait Deviations General Gait Pattern Antalgic,Decreased Stride Length,Decreased Feet Clearance Factors Limiting Gait Function Factors Limiting Gait Function Decreased Activity Tolerance, Decreased Strength,Pain,Poor Balance M5 PT-IP Objective Assessments Start: 07/27/20 12:10 Freq: NEEDED Status: Active Protocol: Document 07/27/20 10:35 AB (Rec: 07/27/20 12:25 [facility] Orientation Orientation/Cognition Level of Alertness Alert Orientation Name,Place,Situation Language Function Ability No Deficits Noted Safety Awareness Decreased Safety Awareness Gross Range of Motion Lower Extremity ROM Assessment Within Functional Limits Strength Comments Strength Comments RLE : 3+/5 LLE : 4-/5 Coordination Assessment Gross Coordination Gross Coordination WNL Sensation Assessment Sensation Gross Sensation WNL Muscle Tone Muscle Tone WNL Yes M6 PT-IP Treatment Start: 07/27/20 12:10 Freq: NEEDED Status: Active Protocol: Document 07/30/20 09:50 AB (Rec: 07/30/20 11:46 AB [id number]) Physical Therapy Treatment Education Education Provided Safety M7 PT-IP Assessment and Plan Start: 07/27/20 12:10 Freq: NEEDED Status: Active Protocol: Document 07/30/20 09:50 AB (Rec: 07/30/20 11:46 AB [id number]) PT Summary Assessment and Plan Potential Rehabilitation Potential Good Summary Impairments Pain,ROM,Strength,Balance, Coordination,Sensation,Bed Mobility,Transfers,Gait, Activity Tolerance Progress Towards Goals Progressing Toward Goals Assessment Summary pt requiring SBA with mobility and plans to go home with her niece to assist her at home when son is not around. pt plans to go home later today. Goals Bed Mobility Goal Independent Transfer Goal Independent Gait Goal Standby Assistance,Front Wheel Walker Gait Distance 200 Other Goals up/down 13 steps L rail ascending SBA up/down 4 steps B rail SBA Days to Meet Goals 5 Frequency of Treatment Frequency Of Treatment Twice a Day Treatment Plan Physical Therapy Treatment Plan Bed Mobility Training,Transfer Training,Gait Training, Therapeutic Exercise,Balance Retraining,Post Op Education, Discharge Planning,Hot or Cold Pack,Neuromuscular Re-ed, Coordination Retraining,Manual Therapy Precautions Lumbar Precautions Log Roll,No Twisting,Limit Bending,Lifting Restriction of 10 lbs,Gait Belt above Incisional Area Recommendations To Nursing Amount of Assist Needed 1 Person Assist Discharge Recommendations PT Discharge Recommendations Home with Assistance,Home Health Transportation Needs at Discharge Private Vehicle
[2020-07-30] MEDS: DOCUSATE 100 MG CAPSULE PO (10:07)
[2020-07-30] MEDS: PANTOPRAZOLE DR 40 MG TABLET PO (10:08)
[2020-07-30] MEDS: SODIUM CHLORIDE 0.9% FLUSH 10 ML IV (10:08)
[2020-07-30] MEDS: MAGNESIUM HYDROXIDE 30 ML UDC PO (10:08)
--- NOTE | 2020-07-30 11:35 | CM.DPC ---
DCP: continued: case received, EMR reviewed, d/c order noted. Checked in with pt and confirmed her plan for home with son and then niece assist and HH. [facility] brochure provided. Left vm for [facility] re the d/c today and faxed Face/Face as well as HH and d/c orders to [facility]. Pt plans to pick her medications up at [facility] and AGUSTIN Flores is aware. Copy #2 of IMM given to pt.
[2020-07-30 11:51] VITALS: BP 140/81; PULSE 101; RESP 16; TEMP 36.2; O2SAT 98
--- NOTE | 2020-07-30 12:56 | PC.NURSE ---
Day shift: Paperwork singed and all questions answered. Back dressing remains CDI. Pt has extra for home if needed. Pt getting Scripts filled downstairs. Will roller picker prior to leaving this campus. Pt has all personal belongings. Taken to car that he Son is driving by MIKE Galdamez.
== END 2020-07-30 12:58 | disposition home health service (06) | DRG 455 ==
LOC: OR 06:06 → AC 06:31
PROVIDERS: Admitting Provider Orthopaedic Surgery Orthopaedic Surgery of the Spine; PCP Family Medicine; Referring Provider Orthopaedic Surgery Orthopaedic Surgery of the Spine; Visit Provider Orthopaedic Surgery Orthopaedic Surgery of the Spine
PROC: 0SG00AJ Fusion of Lumbar Vertebral Joint with Interbody Fusion Device, Posterior Approach, Anterior Column, Open Approach (ICD-10-PCS; principal; 2020-07-26 07:45)
DX: M41.56 Other secondary scoliosis, lumbar region (principal); M48.061 Spinal stenosis, lumbar region without neurogenic claudication; I10 Essential (primary) hypertension; M47.26 Other spondylosis with radiculopathy, lumbar region; E78.5 Hyperlipidemia, unspecified; E03.9 Hypothyroidism, unspecified; K21.9 Gastro-esophageal reflux disease without esophagitis; G89.18 Other acute postprocedural pain; Z20.822 Contact with and (suspected) exposure to COVID-19
CPT/HCPCS: 72100; 76000; 87635; 97116; 97161; 97166; 97530; 97535; C1776; C9803; C9290; J0330; J0690; J1100; J2060; J2250; J2270; J2405; J2704; J3010; J3410